=== PATIENT | male | born 1955 | race Caucasian/White ===

== ENCOUNTER → 2016-06-28 | Outpatient (CLI) | payer OTHER ==
[~2016-06-28] MED LIST: ASPI81TA28 PO; ATOR-22 PO; CHEMO TREATMENT IV; DABI150C PO; DIGO0.122 PO; FURO-85 PO; LCTX PO; LEVO1TAB35 PO; METF-384 PO; METO1TAB71 PO; SULF800T23 PO; TAMS0.4C38 PO; VRPSR180 PO
[2016-06-28 09:38] LABS: HEMATOCRIT 41.4 % (42-52); MEAN CELL VOLUME 92.4 fL (80-100); MEAN CORPUSCULAR HEMOGLOBIN 31.3 pg (25-34); MEAN CORPUSCULAR HGB CONC 33.8 g/dl (32-36); MEAN PLATELET VOLUME 10.4 fL (7.4-10.4); PLATELET COUNT 222 K/uL (130-400); RED BLOOD COUNT 4.48 M/uL (4.7-6.1); WHITE BLOOD COUNT 7.97 K/uL (4.8-10.8)
[2016-06-28 10:17] LABS: ESTIMATED AVERAGE GLUCOSE 134 mg/dl; HA1C FLAG Normal (Normal)
[2016-06-28 13:02] LABS: ALT/SGPT 28 U/L (12-78); AST/SGOT 15 U/L (15-37); BLOOD UREA NITROGEN 11 mg/dl (7-18); BUN/CREATININE RATIO 15.1 (10-20); CALCIUM 9.3 mg/dl (8.5-10.1); CARBON DIOXIDE 30 mmol/L (21-32); CHLORIDE 103 mmol/L (98-107); CREATININE 0.74 mg/dl (0.60-1.40); GLUCOSE 121 mg/dl (70-99); POTASSIUM 4.2 mmol/L (3.5-5.1); SODIUM 144 mmol/L (136-145)
[2016-06-28 13:11] LABS: ALB/GLOB RATIO 1.1 (0.9-2); ALKALINE PHOSPHATASE 67 U/L (45-117); CHOLESTEROL 121 mg/dl (0-200); CHOLESTEROL/HDL RATIO 2.2; HDL CHOLESTEROL 54 mg/dl; LDL CHOLESTEROL CALCULATED 51 mg/dl; TRIGLYCERIDES 81 mg/dl (0-150); VERY LOW DENSITY LIPOPROT CALC 16 mg/dl
== END | disposition home or self-care (01) ==
LOC: C.LAB1850 07:38
PROVIDERS: ATTEND Internal Medicine Cardiovascular Disease
DX: C61 Malignant neoplasm of prostate (principal); I48.91 Unspecified atrial fibrillation; I42.9 Cardiomyopathy, unspecified; E78.5 Hyperlipidemia, unspecified; I25.10 Atherosclerotic heart disease of native coronary artery without angina pectoris; I10 Essential (primary) hypertension; E11.9 Type 2 diabetes mellitus without complications

== ENCOUNTER → 2017-01-22 | Outpatient (CLI) | payer OTHER ==
[2017-01-22 10:54] LABS: HEMATOCRIT 42.4 % (42-52); MEAN CELL VOLUME 96.6 fL (80-100); MEAN CORPUSCULAR HEMOGLOBIN 32.8 pg (25-34); MEAN PLATELET VOLUME 10.6 fL (7.4-10.4); PLATELET COUNT 201 K/uL (130-400); RED BLOOD COUNT 4.39 M/uL (4.7-6.1); WHITE BLOOD COUNT 7.75 K/uL (4.8-10.8)
[2017-01-22 11:02] LABS: ALT/SGPT 29 U/L (12-78); AST/SGOT 16 U/L (15-37); BLOOD UREA NITROGEN 11 mg/dl (7-18); BUN/CREATININE RATIO 14.1 (10-20); CALCIUM 9.1 mg/dl (8.5-10.1); CARBON DIOXIDE 32 mmol/L (21-32); CHLORIDE 103 mmol/L (98-107); CREATININE 0.75 mg/dl (0.60-1.40); GLUCOSE 152 mg/dl (70-99); POTASSIUM 3.6 mmol/L (3.5-5.1); SODIUM 141 mmol/L (136-145)
== END | disposition home or self-care (01) ==
LOC: C.LABBC 07:38
PROVIDERS: ATTEND Internal Medicine Cardiovascular Disease
DX: I48.91 Unspecified atrial fibrillation (principal); I42.9 Cardiomyopathy, unspecified; E78.5 Hyperlipidemia, unspecified; I25.10 Atherosclerotic heart disease of native coronary artery without angina pectoris; I10 Essential (primary) hypertension

== ENCOUNTER → 2017-04-20 | Outpatient (CLI) | payer OTHER ==
[~2017-04-20] MED LIST changes: +METO-649 PO; -METO1TAB71 PO; +OPTIRAY 320 IV PRN
--- NOTE | 2017-04-20 13:14 | DIAGNOSTIC IMAGING REPORT ---
ABDOMEN AND PELVIS CT WITH IV AND ORAL CONTRAST CT DOSE: HISTORY: Prostate cancer. Follow-up. TECHNIQUE: Multiaxial CT images of the abdomen and pelvis were performed following the use of intravenous and oral contrast. A dose lowering technique was utilized adhering to the principles of ALARA. COMPARISON STUDY: Abdomen and pelvis CT 01/13/2016. FINDINGS: The lung bases remain clear. No significant change in the osteoblastic lesion within the left inferior pubic ramus. No new osteoblastic lesions identified. No hepatic or splenic masses. The adrenal glands and pancreas are unremarkable. Normal gallbladder. No retroperitoneal lymphadenopathy. No pelvic lymphadenopathy. Mildly enlarged and heterogeneous prostate, unchanged. No bowel wall thickening or obstruction. Normal appendix. Mild bilateral hydroureteronephrosis, left greater than right. There is moderate bladder wall thickening and moderate bladder distention. This has developed in the interval but appears similar to the 2015 examination. IMPRESSION: 1. Moderate bladder wall thickening and moderate bladder distention. There is associated mild bilateral hydroureteronephrosis. Findings suggest bladder outlet obstruction. This is new from the prior study but is similar to the 2015 examination. 2. The prostate gland remains heterogeneous and mildly enlarged. 3. No change in the osteoblastic lesion within the left inferior pubic ramus. Electronically signed by: Robin Friedman M.D. 04/20/2017 1:12 PM Dictated Date/Time: 04/20/2017 1:02 PM
--- NOTE | 2017-04-20 13:18 | DIAGNOSTIC IMAGING REPORT ---
CHEST CT WITH CONTRAST CT DOSE: 645.68 mGy.cm HISTORY: Prostate cancer. Follow-up. TECHNIQUE: Multiaxial CT images of the chest were performed following the intravenous administration of contrast. A dose lowering technique was utilized adhering to the principles of ALARA. COMPARISON: Chest CT 01/13/2016. FINDINGS: Moderate emphysema. Small bilateral fat-containing [place] hernias. The lungs are essentially clear. No suspicious pulmonary nodules. The central airways are patent. No pleural effusions. No pneumothorax. No change in the osteoblastic lesion within the left scapula. No new lesions identified. No mediastinal or hilar lymphadenopathy. No evidence for an aortic dissection. Mild atherosclerotic plaque within the aorta. The main pulmonary arteries are patent. No mediastinal or hilar lymphadenopathy. IMPRESSION: 1. No change in the osteoblastic lesion within the left scapula. 2. Emphysema. Electronically signed by: Robin Friedman M.D. 04/20/2017 1:17 PM Dictated Date/Time: 04/20/2017 1:12 PM
--- NOTE | 2017-04-20 14:39 | DIAGNOSTIC IMAGING REPORT ---
NUCLEAR MEDICINE WHOLE-BODY BONE SCAN CLINICAL HISTORY: PROSTATE CA COMPARISON STUDY: 01/13/2016, CT scan dated 04/20/2017 FINDINGS: The patient was injected with 25.8 mCi of technetium 99m MDP. Three-hour delayed whole body images were acquired. Despite voiding prior to the procedure, the patient's bladder is distended. This obscures a portion of the pelvis. There is a focus of increased activity within the left wrist consistent with degenerative/arthritic change. There is a focus of increased activity within the left upper arm which is felt to be secondary to the radioisotope injection. There is a focus of increased activity within the left inferior pubic ramus. This corresponds to the blastic lesion visualized the CT scan performed the same day. A metastatic deposit is deemed a likely. There are no additional foci suspicious for skeletal metastasis. IMPRESSION: 1. Focus of increased activity at the level of the left inferior pubic ramus. This corresponds to a blastic lesion on CT scanning, and is therefore felt to represent a skeletal metastasis 2. Distended urinary bladder, suggesting bladder outlet obstruction. Electronically signed by: Fletcher Aguillon M.D. 04/20/2017 2:38 PM Dictated Date/Time: 04/20/2017 2:32 PM
== END | disposition home or self-care (01) ==
LOC: C.CTS 10:37
PROVIDERS: ATTEND Internal Medicine Hematology & Oncology
DX: C61 Malignant neoplasm of prostate (principal)

== ENCOUNTER → 2017-07-22 | Outpatient (CLI) | payer OTHER ==
[~2017-07-22] MED LIST changes: -METO-649 PO; +METO200T32 PO; -OPTIRAY 320 IV PRN
[2017-07-22 09:32] LABS: HEMATOCRIT 39.6 % (42-52); HEMOGLOBIN 13.7 g/dL (14.0-18.0); MEAN CELL VOLUME 93.4 fL (80-100); MEAN CORPUSCULAR HEMOGLOBIN 32.3 pg (25-34); MEAN CORPUSCULAR HGB CONC 34.6 g/dl (32-36); MEAN PLATELET VOLUME 10.3 fL (7.4-10.4); PLATELET COUNT 179 K/uL (130-400); RED CELL DISTRIBUTION WIDTH CV 13.2 % (11.5-14.5); RED CELL DISTRIBUTION WIDTH SD 45.1 fL (36.4-46.3); WHITE BLOOD COUNT 7.61 K/uL (4.8-10.8)
[2017-07-22 09:49] LABS: ALT/SGPT 29 U/L (12-78); AST/SGOT 20 U/L (15-37); BLOOD UREA NITROGEN 11 mg/dl (7-18); CALCIUM 9.3 mg/dl (8.5-10.1); CARBON DIOXIDE 32 mmol/L (21-32); CREATININE 0.74 mg/dl (0.60-1.40); GLUCOSE 117 mg/dl (70-99); POTASSIUM 3.4 mmol/L (3.5-5.1); SODIUM 141 mmol/L (136-145)
[2017-07-22 09:52] LABS: HEMOGLOBIN A1C 6.4 % (4.5-5.6)
[2017-07-22 09:53] LABS: CHOLESTEROL 119 mg/dl (0-200); LDL CHOLESTEROL CALCULATED 50 mg/dl
== END | disposition home or self-care (01) ==
LOC: C.LAB1850 07:58
PROVIDERS: ATTEND Internal Medicine Cardiovascular Disease
DX: I48.91 Unspecified atrial fibrillation (principal); I42.9 Cardiomyopathy, unspecified; I25.10 Atherosclerotic heart disease of native coronary artery without angina pectoris; E78.5 Hyperlipidemia, unspecified; I10 Essential (primary) hypertension

== ENCOUNTER 2017-10-20 06:32 | Day surgery (SDC) | payer OTHER ==
[2017-10-11 08:25] VITALS: BMI 25.0
--- NOTE | 2017-10-11 08:58 | PAT Medication Instructions ---
Service Date October 11, 2017. Current Home Medication List Apixaban (Eliquis), 5 MG PO BID Aspirin (Aspirin Ec), 81 MG PO QAM Atorvastatin (Lipitor), 20 MG PO QAM Coenzyme Q10 (Ubidecarenone) (Co Q10), 200 MG PO QAM Digoxin (Digitek), 1 TAB PO QAM Furosemide (Lasix), 20 MG PO QAM Metformin Hcl (Glucophage), 1,000 MG PO BIDM Metoprolol Succinate (Toprolxl (Toprol-Xl), 100 MG PO QAM Tamsulosin Hcl (Flomax), 0.8 MG PO HS Verapamil HCl (Verapamil HCl ER), 180 MG PO QAM Medication Instructions For Your Scheduled Surgery -Follow your hand mica plate layer's instructions for: Apixaban (Eliquis), 5 MG PO BID -Check with surgeon for instructions--if instructed to stop it, check with hand mica plate layer: Aspirin (Aspirin Ec), 81 MG PO QAM - Hold the following medications starting tomorrow: Coenzyme Q10 (Ubidecarenone) (Co Q10), 200 MG PO QAM - Hold the following medications the morning of surgery: Furosemide (Lasix), 20 MG PO QAM Metformin Hcl (Glucophage), 1,000 MG PO BIDM - Take the following medications the morning of surgery with a sip of water: Atorvastatin (Lipitor), 20 MG PO QAM Digoxin (Digitek), 1 TAB PO QAM Metoprolol Succinate (Toprolxl (Toprol-Xl), 100 MG PO QAM Verapamil HCl (Verapamil HCl ER), 180 MG PO QAM - Take the following medications as scheduled the night before surgery: Metformin Hcl (Glucophage), 1,000 MG PO BIDM Tamsulosin Hcl (Flomax), 0.8 MG PO HS If you have any questions please call us at [phone] or [phone] or [phone]
[2017-10-11 10:36] LABS: BASO % 0.3 %; BASO ABS # 0.03 K/uL (0-0.2); EOS % 1.6 %; EOS ABS # 0.14 K/uL (0-0.5); HEMATOCRIT 30.8 % (42-52); HEMOGLOBIN 10.6 g/dL (14.0-18.0); IG# 0.02 K/uL (0.00-0.02); LYMPH % 22.1 %; LYMPH ABS # 1.95 K/uL (1.2-3.4); MEAN CELL VOLUME 90.3 fL (80-100); MEAN CORPUSCULAR HEMOGLOBIN 31.1 pg (25-34); MEAN CORPUSCULAR HGB CONC 34.4 g/dl (32-36); MEAN PLATELET VOLUME 10.4 fL (7.4-10.4); MONO % 7.9 %; NEUT % 67.9 %; NEUT ABS # 5.99 K/uL (1.4-6.5); PLATELET COUNT 202 K/uL (130-400); RED CELL DISTRIBUTION WIDTH CV 13.1 % (11.5-14.5); WHITE BLOOD COUNT 8.83 K/uL (4.8-10.8)
[2017-10-11 13:16] LABS: CALCIUM 8.9 mg/dl (8.5-10.1); CREATININE 1.45 mg/dl (0.60-1.40); POTASSIUM 3.2 mmol/L (3.5-5.1)
[~2017-10-20] VITALS: Ht 175.3 cm; Wt 77.0 kg
[~2017-10-20 06:32] MED LIST changes: +APIX1TAB3 PO; -CHEMO TREATMENT IV; +CIPROFLOXACIN / D5W 400 MG IV SCH; +COEN1CAP28 PO; -DABI150C PO; -DIGO0.122 PO; +DIGO30TA PO; +LACTATED RINGER'S 1000ML 1,000 ML IV SCH; -LCTX PO; -LEVO1TAB35 PO; -SULF800T23 PO
[2017-10-20 06:59] VITALS: BP 170/93; PULSE 75; TEMP 36.5; O2SAT 95; Ht 175.3 cm; Wt 77.0 kg
[2017-10-20] MEDS ORDERED: PROMETHAZINE HCL INJ 12.5 MG in SODIUM CHLORIDE 0.9% 50ML 50 ML IV PRN (07:30)
[2017-10-20] MEDS ORDERED: PHENYLEPHRINE 100MCG/ML 5ML SYR IV PRN (07:30)
[2017-10-20] MEDS ORDERED: HYDROmorphone INJ 0.5 MG/0.5 ML SYR IV PRN (07:30)
[2017-10-20] MEDS ORDERED: EpHEDrine SULFATE INJ 50 MG/ML AMP IV PRN (07:30)
[2017-10-20] MEDS ORDERED: ATROPINE SULFATE 0.1 MG/ML 5ML SYR IV PRN (07:30)
[2017-10-20] MEDS ORDERED: ONDANSETRON INJ 2 MG/ML 2 ML VIAL IV PRN (07:30)
[2017-10-20] MEDS ORDERED: MIDAZOLAM HCL 1 MG/ML 2ML VIAL ONE (07:32)
[2017-10-20] MEDS ORDERED: FENTANYL CITRATE INJ 50 MCG/1 ML 2 ML VIAL ONE (07:32)
--- NOTE | 2017-10-20 08:18 | History & Physical Bridge Note ---
H&P Re-Evaluation Bridge Note: I have examined the patient, reviewed the History & Physical and in the interval since the performance of the History & Physical I have noted the following changes of clinical significance: No changes noted
[2017-10-20] MEDS ORDERED: CIPR-255 PO (08:32)
[2017-10-20] MEDS ORDERED: PHEN-775 PO (08:32)
[2017-10-20] MEDS ORDERED: OXYC-57 PO (08:32)
--- NOTE | 2017-10-20 08:48 | Discharge Instructions ---
Discharge Instructions Date of Service October 20, 2017. Admission Reason for Admission: Urinary Obstruction Discharge Discharge Diagnosis / Problem: ROPER, CAP s/p TURP Discharge Goals Goal(s): Improve function, Therapeutic intervention Activity Recommendations Activity Limitations: as noted below Lifting Limitations: no more than 25 pounds, gradually increase as tolerated Exercise/Sports Limitations: rest today, gradually increase as tolerated May Resume Sexual Activity: after follow-up appointment Shower/Bathe: tomorrow Driving or Machine Use: resume 1 day after discharge . Instructions / Follow-Up Instructions / Follow-Up Follow-up as scheduled in office for catheter removal and postoperative follow- up Current Hospital Diet Patient's current hospital diet: Discharge Diet Recommended Diet: Regular Diet (good fluid intake) Procedures Procedures Performed: Transurethra resection of prostate, urethral dilation Pending Studies Studies pending at discharge: yes List of pending studies: Pathology Medical Emergencies . Who to Call and When: Medical Emergencies: If at any time you feel your situation is an emergency, please call 911 immediately. . Non-Emergent Contact Non-Emergency issues call your: Urologist Call Non-Emergent contact if: you have a fever, temperature is above 101, your pain is not controlled, your pain is worsening, your pain is unusual for you, your pain is concerning you, you have any medication questions . . "Provider Documentation" section prepared by Connor Da Silva. . [place] Drug Monitoring Program Search Results: patient reviewed within database, no issues identified
[2017-10-20] MEDS ORDERED: PROPOFOL IV EMULSION 10 MG/ML 20 ML VIAL ONE (08:51)
[2017-10-20] MEDS ORDERED: DEXAMETHASONE SOD INJ 4 MG/ML VIAL ONE (08:51)
[2017-10-20] MEDS ORDERED: LIDOCAINE HCL 2% 2 ML VIAL (20MG/ML) ONE (08:51)
[2017-10-20] MEDS ORDERED: ONDANSETRON INJ 2 MG/ML 2 ML VIAL ONE (08:51)
[2017-10-20] MEDS ORDERED: BELLADONNA/OPIUM SUPP 60 MG SUPP PR ONE (08:51)
--- NOTE | 2017-10-20 09:22 | [facility] Operative Report ---
Operative Report Operative Date October 20, 2017. Pre-Operative Diagnosis Neoplasm of Prostate, Bladder Outlet Obstruction Post-Operative Diagnosis Neoplasm of Prostate, Bladder Outlet Obstruction, fossa navicularis stenosis Procedure(s) Performed Transurethral resection of prostate, urethral dilation Surgeon Dr. Joey Da Silva [employer] Consultant Surgeon(s) none Estimated Blood Loss 5 ml Findings Channel TURP performed with excellent hemostasis, dilated bladder with no intravesical lesions. Specimens A. Prostate Chips Drains 24 Guyanese Dumont with 10 cc of sterile water in the balloon Anesthesia Type General Complication(s) none Disposition no Recovery Room / PACU Indications 62-year-old male with a history of metastatic prostate cancer for channel TURP for improvement upon his bothersome urinary symptoms. Please see H&P for further details. Intravenous ciprofloxacin provided for antibiotic coverage and SCDs used for DVT prophylaxis. Description of Procedure Patient was properly identified and brought to the operative suite after identification for proper consent of the chart. General anesthesia with laryngeal mask was initiated and patient was prepped and draped in the standard fashion for this procedure. Timeout procedure was followed. Attempts at passing a 26 Guyanese resectoscope into the bladder met with resistance at the level of the fossa navicularis. This was dilated up to a 30 Guyanese caliber using male sounds with the ability to pass the scope easily after this. An obstructive prostate and bladder neck were appreciated as noted within the office on cystoscopy. Using a bipolar loop this was resected in a channel fashion until open. Avoidance of excess resection of prostate tissue was taken to avoid the risk of future incontinence. No injury to the intravesical structures was noted. Bladder had been surveyed at the beginning of the case and was noted to be somewhat patulous with grade 2-3 trabeculation. Ureteral orifices were appreciated in the normal anatomic location without significant abnormalities. No intravesical tumors, papillary lesions, mucosal changes or stones were noted. After resection was complete prostate chips were irrigated free and sent for pathologic analysis. Bipolar button was used to smooth out rough tissue within the prostatic fossa and obtain excellent hemostasis. Bladder was partially distended and resectoscope was removed. 24 Guyanese Dumont catheter was placed without difficulties with return of clear irrigant. 10 cc of sterile water were placed within the balloon which was placed to gravity drainage and a belladonna and opium suppository was provided for additional postoperative analgesia. Anesthesia was reversed and patient was transferred to the recovery room in stable condition. Follow-up instructions: Patient will be provided with a prescription for ciprofloxacin, Percocet and Pyridium for postoperative antibiotic coverage and analgesia. Outpatient trial of void is in place and confirmed. Outpatient office visit as noted. Patient is instructed to contact our service should he note any fevers, chills, nausea, vomiting or other difficulties in the postoperative period. I attest to the content of the Intraoperative Record and any orders documented therein. Any exceptions are noted below.
[2017-10-20] MEDS ORDERED: PHENAZOPYRIDINE HCL 200 MG TAB PO PRN (09:30)
[2017-10-20] MEDS ORDERED: OXYCODONE/ACETAMINOPHEN 5-325 TAB PO PRN ×2 (09:30)
[2017-10-20] MEDS: FENTANYL CITRATE INJ 50 MCG/1 ML 2 ML VIAL IV PRN ×4 (09:32→09:49)
--- NOTE | 2017-10-20 10:08 | Anesthesiology Progress Note ---
Anesthesia Post Op Note Date & Time October 20, 2017 at 10:08 Vital Signs Pain Intensity: 2 Vital Signs Past 12 Hours Date Time Temp Pulse Resp B/P (MAP) Pulse Ox O2 Delivery O2 Flow Rate FiO2 10/20/17 10:05 36.0 46 14 129/75 93 Room Air 10/20/17 09:55 51 17 129/75 93 Room Air 10/20/17 09:45 48 13 133/69 100 Room Air 10/20/17 09:35 55 17 130/84 100 Oxymask 10 10/20/17 09:26 36.1 57 15 146/81 100 Oxymask 10 10/20/17 06:59 36.5 75 18 170/93 (118) 95 Room Air Notes Mental Status: alert / awake / arousable, participated in evaluation Pt Amnestic to Procedure: Yes Nausea / Vomiting: adequately controlled Pain: adequately controlled Airway Patency, RR, SpO2: stable & adequate BP & HR: stable & adequate Hydration State: stable & adequate Anesthetic Complications: no major complications apparent
[2017-10-20 10:20] VITALS: BP 137/70; PULSE 50; TEMP 36.4; O2SAT 94
[2017-10-20 10:50] VITALS: BP 163/57; PULSE 49; O2SAT 93
[2017-10-20 11:20] VITALS: BP 114/67; PULSE 63; TEMP 36.6; O2SAT 92
== END 2017-10-20 11:35 | disposition home or self-care (01) ==
LOC: C.ACU 06:32
PROVIDERS: ATTEND Urology
DX: C61 Malignant neoplasm of prostate (principal); N32.0 Bladder-neck obstruction; R33.9 Retention of urine, unspecified; J44.9 Chronic obstructive pulmonary disease, unspecified; E11.9 Type 2 diabetes mellitus without complications; I48.91 Unspecified atrial fibrillation; I25.10 Atherosclerotic heart disease of native coronary artery without angina pectoris; E78.5 Hyperlipidemia, unspecified; I10 Essential (primary) hypertension; Z82.49 Family history of ischemic heart disease and other diseases of the circulatory system; Z83.3 Family history of diabetes mellitus; Z87.891 Personal history of nicotine dependence; Z79.899 Other long term (current) drug therapy; Z79.01 Long term (current) use of anticoagulants; Z79.82 Long term (current) use of aspirin; Z79.84 Long term (current) use of oral hypoglycemic drugs

== ENCOUNTER → 2017-12-17 | Outpatient (CLI) | payer BC ==
[~2017-12-17] MED LIST changes: +CIPR-255 PO; -CIPROFLOXACIN / D5W 400 MG IV SCH; -LACTATED RINGER'S 1000ML 1,000 ML IV SCH; +OXYC-57 PO
[2017-12-17 10:20] LABS: BASO % 0.3 %; BASO ABS # 0.02 K/uL (0-0.2); EOS ABS # 0.21 K/uL (0-0.5); HEMATOCRIT 38.4 % (42-52); HEMOGLOBIN 12.8 g/dL (14.0-18.0); IG# 0.02 K/uL (0.00-0.02); LYMPH ABS # 2.21 K/uL (1.2-3.4); MEAN CELL VOLUME 93.4 fL (80-100); MEAN CORPUSCULAR HEMOGLOBIN 31.1 pg (25-34); MEAN CORPUSCULAR HGB CONC 33.3 g/dl (32-36); MEAN PLATELET VOLUME 10.2 fL (7.4-10.4); MONO % 6.4 %; MONO ABS # 0.44 K/uL (0.11-0.59); PLATELET COUNT 203 K/uL (130-400); RED CELL DISTRIBUTION WIDTH CV 14.3 % (11.5-14.5); RED CELL DISTRIBUTION WIDTH SD 48.8 fL (36.4-46.3)
[2017-12-17 10:52] LABS: ALBUMIN 3.6 gm/dl (3.4-5.0); ALKALINE PHOSPHATASE 66 U/L (45-117); ALT/SGPT 21 U/L (12-78); AST/SGOT 14 U/L (15-37); BLOOD UREA NITROGEN 16 mg/dl (7-18); CARBON DIOXIDE 31 mmol/L (21-32); CREATININE 0.75 mg/dl (0.60-1.40); GLUCOSE 104 mg/dl (70-99); POTASSIUM 3.7 mmol/L (3.5-5.1); SODIUM 142 mmol/L (136-145)
== END | disposition home or self-care (01) ==
LOC: C.LAB1850 07:29
PROVIDERS: ATTEND Internal Medicine Cardiovascular Disease
DX: C61 Malignant neoplasm of prostate (principal); I48.91 Unspecified atrial fibrillation; I42.9 Cardiomyopathy, unspecified; I25.10 Atherosclerotic heart disease of native coronary artery without angina pectoris; I10 Essential (primary) hypertension; R60.0 Localized edema

== ENCOUNTER 2020-03-31 19:03 | Observation (INO) ==
[2020-03-31 19:30] LABS: Basophils # (auto) 0.01 K/uL (0-0.2); Basophils % (auto) 0.1 %; Eosinophils # (auto) 0.14 K/uL (0-0.5); Eosinophils % (auto) 1.4 %; Hematocrit (blood only) 38.5 % (42-52); Hemoglobin 12.7 g/dL (14.0-18.0); Immature Granulocytes # (auto) 0.04 K/uL (0.00-0.02); Immature Granulocytes % (auto) 0.4 %; Lymphocytes # (auto) 1.96 K/uL (1.2-3.4); Lymphocytes % (auto) 19.5 %; Mean Corpuscular Hemoglobin 30.9 pg (25-34); Mean Corpuscular Volume 93.7 fL (80-100); Mean Platelet Volume 9.5 fL (7.4-10.4); Monocytes # (auto) 0.94 K/uL (0.11-0.59); Monocytes % (auto) 9.3 %; Neutrophils # (auto) 6.98 K/uL (1.4-6.5); Neutrophils % (auto) 69.3 %; Platelet Count 356 K/uL (130-400); RDW Coefficient of Variation 14.6 % (11.5-14.5); RDW Standard Deviation 49.9 fL (36.4-46.3); Red Blood Count 4.11 M/uL (4.7-6.1); White Blood Count 10.07 K/uL (4.8-10.8)
--- NOTE | 2020-03-31 19:37 | Emergency Department Note ---
History of Present Illness General Chief complaint: Cardiac Assessment Stated complaint: CHEST PAIN, LEFT ARM PAIN Time Seen by Provider: 03/31/20 19:14 Source: patient, family (), RN notes reviewed and old records reviewed Mode of arrival: ambulatory Limitations: no limitations History of Present Illness Provider complaint: chest pain Onset (ago): hour(s) 1 Location: chest Radiation: abdomen Severity: mild Pain Consistency: + constant Maximum Pain Intensity: 4 Current Pain Intensity: 4 Quality: + burning Relieved By: + none Exacerbated By: + none Associated symptoms: no cough, no diaphoresis, no fever/chills, no headaches, no loss of appetite, no nausea/vomiting and no shortness of breath Treatments prior to arrival: none This 64-year-old male with a history of congestive heart failure as well as atrial fibrillation who presents the emergency department complaining of chest pain that started after the patient was eating dinner tonight. The patient denies any history of stents. He has not taken anything for the pain. He reports nothing seems to make the pain better or worse. He reports no pain with a deep breath. He reports he has never had chest pain like this before and that it radiates down his left arm. He is refusing anything for the pain here in the emergency department. He does have a history of prostate cancer however is no longer receiving chemotherapy or radiation Home Medications Home Medications Medication Instructions Recorded Confirmed Type leuprolide (3 month) 22.5 mg (3 22.5 mg IM Q3MO ea 02/06/19 03/31/20 History month) intramuscular syringe kit blood sugar diagnostic #10 ea 02/14/19 07/10/19 History blood-glucose meter #1 ea 02/14/19 07/10/19 History aspirin 81 mg tablet,delayed 81 mg PO QAM tab 05/02/19 03/31/20 History release apixaban 5 mg tablet 5 mg PO BID #60 tab 10/02/19 03/31/20 Rx verapamil 180 mg 24 hr 180 mg PO QAM #90 cap 11/29/19 03/31/20 Rx capsule,extended release metformin 1,000 mg tablet 1,000 mg PO BID #180 tab 01/25/20 03/31/20 Rx atorvastatin 20 mg PO QAM 02/14/20 03/31/20 History furosemide [Lasix] See Rx Instructions .ROUTE .COMPLEX 02/14/20 03/31/20 History metoprolol succinate 200 mg PO QAM 02/14/20 03/31/20 History digoxin 125 mcg (0.125 mg) tablet 125 mcg PO Q OTHER DAY #45 tab 02/27/20 03/31/20 Rx Allergies Allergy/AdvReac Type Severity Reaction Status Date / Time carvedilol Allergy Mild RASH Verified 03/31/20 21:11 dronedarone Allergy Mild SEVERE Verified 03/31/20 21:11 CONSTIPATION Past Med/Surg History Medical History (Updated 03/31/20 @ 22:11 by Will Vanessa MD) Anticoagulant long-term use eliquis bid Atrial fibrillation, permanent on eliquis--follows with Dr. Mcfarlane CAD (coronary artery disease) CHF (congestive heart failure) Diabetes type 2 Dyslipidemia Edema History of chemotherapy 2014 - Taxotere + Lupron Hypertension Leukopenia Nonischemic cardiomyopathy Prostate cancer metastatic to bone Diagnosed 04/18/2015 Thrombus of left atrial appendage Surgical History History of cardioversion x2--unsuccessful History of colonoscopy with polypectomy---2017 History of hernia repair 1987 History of prostate biopsy History of tooth extraction all teeth S/P TURP (status post transurethral resection of prostate) 10/20/17 Family History Sister Breast cancer Mother Diabetes Congestive heart failure Hypertension Father Congestive heart failure Brother Prostate cancer Other No family history of adverse response to anesthesia Social History Smoking Status: Never smoker Second Hand Exposure: Yes (1 can every couple days); Do You Dip or Chew Tobacco: Yes (1 can every couple of days); Hx Alcohol Use: No Hx Substance Use: No Preferred Language: Japanese Communication Ability: Effective Roller Print Tender Required: No Beliefs That Will Affect Care: None marital status: Current Living Situation: Spouse current occupational status: employed Other Information That Helps Us Care for You: No Feels Safe at Home: Yes Safety Concerns: Feels Safe At This Time Dental Care, Regularly: No Physical Activity Frequency: Does not Exercise Seatbelt Use: always Assistive Devices: Denture - Upper and Denture - Lower Review of Systems A total of 10 systems reviewed and were otherwise negative Physical Exam Vital Signs Vital Signs - 24 hr 03/31/20 19:05 03/31/20 19:21 03/31/20 19:22 Temperature 36.3 C L Temperature Source Oral Pulse Rate 102 H 109 H 102 H Pulse Rate from SpO2 Sensor 98 H Respiratory Rate 18 19 20 Respiratory Effort / Characteristics Non-Labored Spontaneous Respiratory Depth Normal Respiratory Pattern Regular Blood Pressure 141/77 H 147/96 H Blood Pressure Mean 98 101 Blood Pressure Position Sitting Pulse Oximetry 96 97 Oxygen Delivery Method Room Air Room Air Room Air Sepsis Recent Fever Within 48 Hours No Sepsis New/Unexplained Change in Mental Status No Sepsis Action Taken by Nursing No Action Required 03/31/20 19:30 03/31/20 19:40 03/31/20 19:50 Temperature Temperature Source Pulse Rate 100 H 87 90 Pulse Rate from SpO2 Sensor 94 H 87 Respiratory Rate 21 17 19 Respiratory Effort / Characteristics Respiratory Depth Respiratory Pattern Blood Pressure Blood Pressure Mean Blood Pressure Position Pulse Oximetry 96 96 Oxygen Delivery Method Room Air Room Air Room Air Sepsis Recent Fever Within 48 Hours Sepsis New/Unexplained Change in Mental Status Sepsis Action Taken by Nursing 03/31/20 20:00 03/31/20 20:01 03/31/20 20:10 Temperature Temperature Source Pulse Rate 97 H 96 H 98 H Pulse Rate from SpO2 Sensor 94 H 99 H 95 H Respiratory Rate 20 16 18 Respiratory Effort / Characteristics Respiratory Depth Respiratory Pattern Blood Pressure 135/68 Blood Pressure Mean 80 Blood Pressure Position Pulse Oximetry 97 96 96 Oxygen Delivery Method Room Air Room Air Room Air Sepsis Recent Fever Within 48 Hours Sepsis New/Unexplained Change in Mental Status Sepsis Action Taken by Nursing 03/31/20 20:12 03/31/20 21:00 03/31/20 21:30 Temperature Temperature Source Pulse Rate 96 H 92 H Pulse Rate from SpO2 Sensor 88 94 H Respiratory Rate 19 21 Respiratory Effort / Characteristics Respiratory Depth Respiratory Pattern Blood Pressure 134/77 151/92 H Blood Pressure Mean 82 95 Blood Pressure Position Pulse Oximetry 96 96 Oxygen Delivery Method Room Air Sepsis Recent Fever Within 48 Hours Sepsis New/Unexplained Change in Mental Status Sepsis Action Taken by Nursing 03/31/20 22:00 03/31/20 22:30 Temperature Temperature Source Pulse Rate 105 H 106 H Pulse Rate from SpO2 Sensor 117 H 104 H Respiratory Rate 24 17 Respiratory Effort / Characteristics Respiratory Depth Respiratory Pattern Blood Pressure 134/98 133/90 Blood Pressure Mean 104 116 Blood Pressure Position Pulse Oximetry 92 96 Oxygen Delivery Method Sepsis Recent Fever Within 48 Hours Sepsis New/Unexplained Change in Mental Status Sepsis Action Taken by Nursing VITAL SIGNS - Vital signs and nursing notes were reviewed. GENERAL - 64-year-old male appearing stated age who is in no acute distress. Communicates well with provider and answers questions appropriately. SKIN - Without rashes. HEAD - NC/AT. EYES - PERRL with EOMI bilaterally. Sclera anicteric. Palpebral conjunctiva pink and moist with no injection noted. EARS - No deformities of external structures noted on gross examination bilaterally. No pain elicited with palpation of the tragus bilaterally. External auditory canals without discharge or otorrhea. Tympanic membranes pearly da silva without retraction or bulging. No fluid or purulent material visualized behind the TM. Handle of malleus, umbo, cone of light, pars tensa/flaccid all easily visualized. NOSE - Midline and without cyanosis. No epistaxis or purulent drainage noted. Septum midline without deviation or septal hematoma noted. MOUTH/OROPHARYNX - Without perioral cyanosis. Buccal mucosa pink and moist and without leukoplakia. Tongue midline with equal elevation of palate bilaterally. No tonsillar hypertrophy, erythema, or exudates noted. dentition noted. NECK - Neck with FROM. Supple to palpation. lymphadenopathy noted. No nuchal rigidity. LUNGS - Chest wall symmetric without accessory muscle use, intercostals retractions, or central cyanosis. Normal vesicular breath sounds CTA B/L. No wheezes, rales, or rhonchi appreciated. CARDIAC - RRR with S1/S2. No murmur, rubs, or gallops appreciated. ABDOMEN - Abdominal contour without pulsations or visible masses. BS normoactive all four quadrants. No tenderness, palpable masses, hepatosplenomegaly, or ascites noted. EXTREMITIES - No clubbing or peripheral cyanosis. No pretibial edema present. +3/5 radial, posterior tibial, and dorsalis pedis pulses palpated throughout. +5/5 strength noted in UE/LE bilaterally. NEUROLOGIC - Cranial nerves II through XII grossly intact. Sensory intact to light touch throughout. Patellar reflexes +2/4. PSYCH - A&Ox3 and cooperates fully with examiner. Pt is very pleasant and interacts well with examiner. Medical Decision Making Differential Diagnosis Cardiac ischemia, aortic dissection, pulmonary embolism, pneumothorax, pneumonia, pericarditis, myocarditis, esophageal rupture, GERD, cholecystitis, pancreatitis, musculoskeletal, as well as other pathologies. Medical Records Attestation: I reviewed the patient's medical records. Home Medications Current Medication List: was personally reviewed by me Laboratory Data Attestation: I reviewed the patient's lab results. Result diagrams: 03/31/20 19:22 03/31/20 20:48 Lab Results 03/31/20 03/31/20 03/31/20 Range/Units 19:22 19:22 19:22 WBC 10.07 (4.8-10.8) K/uL RBC 4.11 L (4.7-6.1) M/uL Hgb 12.7 L (14.0-18.0) g/dL POC Hgb (14.0-18.0) g/dl Hct 38.5 L (42-52) % POC Hct (42-52) % MCV 93.7 (80-100) fL MCH 30.9 (25-34) pg MCHC 33.0 (32-36) g/dL RDW Std Deviation 49.9 H (36.4-46.3) fL RDW Coeff of Wilbert 14.6 H (11.5-14.5) % Plt Count 356 (130-400) K/uL MPV 9.5 (7.4-10.4) fL Immature Gran % (Auto) 0.4 % Neut % (Auto) 69.3 % Lymph % (Auto) 19.5 % Keith % (Auto) 9.3 % Eos % (Auto) 1.4 % Baso % (Auto) 0.1 % Neut # (Auto) 6.98 H (1.4-6.5) K/uL Lymph # (Auto) 1.96 (1.2-3.4) K/uL Keith # (Auto) 0.94 H (0.11-0.59) K/uL Eos # (Auto) 0.14 (0-0.5) K/uL Baso # (Auto) 0.01 (0-0.2) K/uL Immature Gran # (Auto) 0.04 H (0.00-0.02) K/uL PT Cancelled INR Cancelled APTT Cancelled PTT Ratio Cancelled POC Sodium (135-144) mmol/L Sodium 133 L (136-145) mmol/L POC Potassium (3.3-5.0) mmol/L Potassium (3.5-5.1) mmol/L POC Chloride (101-112) mmol/L Chloride 97 L (98-107) mmol/L Carbon Dioxide 27 (21-32) mmol/L POC Total CO2 (24-31) mmol/L Anion Gap 9.0 (3-11) POC Anion Gap (16-25) mmol/L POC BUN (7-18) mg/dl BUN 19 H (7-18) mg/dl Creatinine 0.91 (0.6-1.4) mg/dl POC Creatinine (0.6-1.3) mg/dl Est Cr Clr Drug Dosing 65.1 ml/min Est GFR ( Amer) 103.6 Est GFR (Non-Af Amer) 89.4 BUN/Creatinine Ratio 21.1 H (10-20) Glucose 131 H (70-99) mg/dl POC Glucose (other) (70-99) mg/dl Calcium 8.9 (8.5-10.1) mg/dl POC Ioniz Calcium Landen (1.12-1.32) mmol/l Total Bilirubin 0.5 (0.2-1) mg/dl AST (15-37) U/L ALT 46 (12-78) U/L Alkaline Phosphatase 214 H (45-117) U/L Total Creatine Kinase (39-308) U/L CK-MB (CK-2) 1.6 (0.5-3.6) ng/ml CK/CKMB % Calc Not Reportable Troponin I < 0.015 (0-0.045) ng/ml NT-Pro-B Natriuret Pep 626 (0-900) pg/ml Total Protein 8.1 (6.4-8.2) gm/dl Albumin 3.2 L (3.4-5.0) gm/dl Globulin 4.9 H (2.5-4.0) gm/dl Albumin/Globulin Ratio 0.6 L (0.9-2) Lipase 160 (73-393) U/L Digoxin (0.8-2.0) ng/ml COVID-19 Eval Order COVID-19 PCR (Negative) 03/31/20 03/31/20 03/31/20 Range/Units 19:37 19:41 20:02 WBC (4.8-10.8) K/uL RBC (4.7-6.1) M/uL Hgb (14.0-18.0) g/dL POC Hgb 12.6 L (14.0-18.0) g/dl Hct (42-52) % POC Hct 37 L (42-52) % MCV (80-100) fL MCH (25-34) pg MCHC (32-36) g/dL RDW Std Deviation (36.4-46.3) fL RDW Coeff of Wilbert (11.5-14.5) % Plt Count (130-400) K/uL MPV (7.4-10.4) fL Immature Gran % (Auto) % Neut % (Auto) % Lymph % (Auto) % Keith % (Auto) % Eos % (Auto) % Baso % (Auto) % Neut # (Auto) (1.4-6.5) K/uL Lymph # (Auto) (1.2-3.4) K/uL Keith # (Auto) (0.11-0.59) K/uL Eos # (Auto) (0-0.5) K/uL Baso # (Auto) (0-0.2) K/uL Immature Gran # (Auto) (0.00-0.02) K/uL PT INR APTT PTT Ratio POC Sodium 135 (135-144) mmol/L Sodium (136-145) mmol/L POC Potassium 4.0 (3.3-5.0) mmol/L Potassium (3.5-5.1) mmol/L POC Chloride 93 L (101-112) mmol/L Chloride (98-107) mmol/L Carbon Dioxide (21-32) mmol/L POC Total CO2 27 (24-31) mmol/L Anion Gap (3-11) POC Anion Gap 20.0 (16-25) mmol/L POC BUN 18 (7-18) mg/dl BUN (7-18) mg/dl Creatinine (0.6-1.4) mg/dl POC Creatinine 0.7 (0.6-1.3) mg/dl Est Cr Clr Drug Dosing ml/min Est GFR ( Amer) Est GFR (Non-Af Amer) BUN/Creatinine Ratio (10-20) Glucose (70-99) mg/dl POC Glucose (other) 135 H (70-99) mg/dl Calcium (8.5-10.1) mg/dl POC Ioniz Calcium Landen 1.11 L (1.12-1.32) mmol/l Total Bilirubin (0.2-1) mg/dl AST (15-37) U/L ALT (12-78) U/L Alkaline Phosphatase (45-117) U/L Total Creatine Kinase (39-308) U/L CK-MB (CK-2) (0.5-3.6) ng/ml CK/CKMB % Calc Troponin I (0-0.045) ng/ml NT-Pro-B Natriuret Pep (0-900) pg/ml Total Protein (6.4-8.2) gm/dl Albumin (3.4-5.0) gm/dl Globulin (2.5-4.0) gm/dl Albumin/Globulin Ratio (0.9-2) Lipase (73-393) U/L Digoxin 0.4 L (0.8-2.0) ng/ml COVID-19 Eval Order Covid19 Done at [facility] COVID-19 PCR (Negative) 03/31/20 03/31/20 03/31/20 Range/Units 20:02 20:48 20:48 WBC (4.8-10.8) K/uL RBC (4.7-6.1) M/uL Hgb (14.0-18.0) g/dL POC Hgb (14.0-18.0) g/dl Hct (42-52) % POC Hct (42-52) % MCV (80-100) fL MCH (25-34) pg MCHC (32-36) g/dL RDW Std Deviation (36.4-46.3) fL RDW Coeff of Wilbert (11.5-14.5) % Plt Count (130-400) K/uL MPV (7.4-10.4) fL Immature Gran % (Auto) % Neut % (Auto) % Lymph % (Auto) % Keith % (Auto) % Eos % (Auto) % Baso % (Auto) % Neut # (Auto) (1.4-6.5) K/uL Lymph # (Auto) (1.2-3.4) K/uL Keith # (Auto) (0.11-0.59) K/uL Eos # (Auto) (0-0.5) K/uL Baso # (Auto) (0-0.2) K/uL Immature Gran # (Auto) (0.00-0.02) K/uL PT 17.7 H INR 1.7 H APTT 32.4 H PTT Ratio 1.2 POC Sodium (135-144) mmol/L Sodium (136-145) mmol/L POC Potassium (3.3-5.0) mmol/L Potassium (3.5-5.1) mmol/L POC Chloride (101-112) mmol/L Chloride (98-107) mmol/L Carbon Dioxide (21-32) mmol/L POC Total CO2 (24-31) mmol/L Anion Gap (3-11) POC Anion Gap (16-25) mmol/L POC BUN (7-18) mg/dl BUN (7-18) mg/dl Creatinine (0.6-1.4) mg/dl POC Creatinine (0.6-1.3) mg/dl Est Cr Clr Drug Dosing ml/min Est GFR ( Amer) Est GFR (Non-Af Amer) BUN/Creatinine Ratio (10-20) Glucose (70-99) mg/dl POC Glucose (other) (70-99) mg/dl Calcium (8.5-10.1) mg/dl POC Ioniz Calcium Landen (1.12-1.32) mmol/l Total Bilirubin (0.2-1) mg/dl AST (15-37) U/L ALT (12-78) U/L Alkaline Phosphatase (45-117) U/L Total Creatine Kinase (39-308) U/L CK-MB (CK-2) (0.5-3.6) ng/ml CK/CKMB % Calc Troponin I (0-0.045) ng/ml NT-Pro-B Natriuret Pep (0-900) pg/ml Total Protein (6.4-8.2) gm/dl Albumin (3.4-5.0) gm/dl Globulin (2.5-4.0) gm/dl Albumin/Globulin Ratio (0.9-2) Lipase (73-393) U/L Digoxin (0.8-2.0) ng/ml COVID-19 Eval Order COVID-19 PCR NEGATIVE (Negative) Imaging Data Radiologist's Impression: [facility] [place], [place] [phone] CT Scan Report Patient: JEREMY MARIA AAdmit Date: 03/31/20 MR#: [id number]: [id number] Acct ID:[id number]: [facility] Zip[facility] [place] [id number] Age: 64Location: ED Sex: MRoom/Bed: Att Phy:Diagnosis: CHEST PAIN, LEFT ARM PAIN Sarah Phy: Ramiro Meléndez III, MDService Date: 03/31/20 Fam Phy: Ramiro Meléndez III, MDInterpreting Phy: Paddy Sam MD Admit Phy: Ordering Phy: Will Vanessa MD cc: ~ CT ANGIOGRAPHY OF THE CHEST, PULMONARY EMBOLUS PROTOCOL CLINICAL HISTORY: Chest pain. Prostate cancer. COMPARISON STUDY: Chest CT April 20, 2017. Chest radiograph September 04, 2018. TECHNIQUE: Following IV administration of 118 mL of Optiray-320, helical axial images of the chest were obtained utilizing the pulmonary embolus protocol. Maximal intensity projections and sagittal and coronal reformats were viewed on an independent 3D workstation. IV contrast was administered without complication. Automated exposure control was utilized for the study. A dose lowering technique was utilized adhering to the principles of ALARA. CT DOSE: 819.74 mGycm FINDINGS: No pulmonary emboli are identified. There is no thoracic aortic dissection. The size of the heart is normal. There is no pericardial effusion. No pneumothorax or pleural effusion is noted. There is bilateral gynecomastia. No enlarged axillary, mediastinal or hilar lymph nodes are present. There is no consolidation to suggest pneumonia. Severe emphysema is noted. A few small left lower lobe pulmonary nodules measure up to 4 mm. A few of these are new since prior CT of April 20, 2017 and are indeterminate. Note is made of a 2.2 cm sclerotic lesion within the left humeral neck. This is new since prior chest CT. There is also a lesion within T6 vertebral body that measures 1.4 cm. This is new since prior exam. A left scapular lesion is unchanged. Extensive hepatic metastatic disease has significantly progressed since CT of January 17, 2020. IMPRESSION: 1. No pulmonary emboli identified. 2. Marked progression of hepatic metastatic disease since CT of January 17, 2020. This is better depicted on the CT of the abdomen and pelvis which will be reported separately. Several new skeletal lesions suggestive of metastases. 3. Emphysema. ACT 112: Negative or not required by law. Electronically signed by: Paddy Sam M.D. 03/31/2020 8:52 PM Dictated: 03/31/202041 Transcribed: 03/31/202041 [place], [place] [phone] CT Scan Report Patient: JEREMY MARIA AAdmit Date: 03/31/20 MR#: [id number]: [id number] Acct ID:[id number]: [facility] Zip[facility] [place] [address] Age: 64Location: ED Sex: MRoom/Bed: Att Phy:Diagnosis: CHEST PAIN, LEFT ARM PAIN Sarah Phy: Ramiro Meléndez III, MDService Date: 03/31/20 Fam Phy: Ramiro Meléndez III, MDInterpreting Phy: Paddy Sam MD Admit Phy: Ordering Phy: Will Vanessa MD cc: ~ CT OF THE ABDOMEN AND PELVIS WITH CONTRAST CLINICAL HISTORY: Chest and abdominal pain. Prostate cancer. COMPARISON STUDY: CT of the abdomen and pelvis January 17, 2020. TECHNIQUE: Following IV administration of 118 mL of Optiray-320, axial images of the abdomen and pelvis were obtained from the lung bases to the proximal femurs. Images were reviewed in the axial, sagittal, and coronal planes. IV contrast was administered without complication. Automated exposure control was utilized for the study. A dose lowering technique was utilized adhering to the principles of ALARA. FINDINGS: Please note that the chest CT will be reported separately. The size and number of numerous hepatic metastases have significantly increased since CT of January 17, 2020. Index lateral segment lesion now measures 5.2 cm. It previously measured 2.3 cm. No biliary or pancreatic ductal dilatation is noted. The spleen, adrenal glands and kidneys are unremarkable with exception of a right renal cyst. There is no evidence for a bowel obstruction. The appendix is normal. Abdominal and pelvic lymphadenopathy has significantly progressed since prior CT. Index portacaval lymph node on image 146 of 446 measures 3.7 x 1.9 cm. Index left para-aortic lymph node measures 1.8 x 1.5 cm. Index right iliac chain node on image 295 measures 1.9 x 1.4 cm. Bladder wall thickening is noted. Note is made of multiple perirectal nodules that measure up to 1.6 cm. The prostate gland is enlarged. Enhancing nodules project over the base of the bladder. In addition, there is possible extension into the periprosthetic tissues at the level of the right apex of the bladder. These findings have progressed. Left ischial skeletal metastasis is unchanged. There is extensive plaque of the abdominal aorta which is normal in caliber. No pneumatosis, free air or portal venous gas is present. IMPRESSION: 1. Significant progression of extensive hepatic metastatic disease since CT of January 17, 2020. 2. Progression of abdominal and pelvic lymphadenopathy consistent with izabella sp read of disease. 3. Multiple perirectal nodules/pathologic lymph nodes suggestive of metastatic disease. Findings suggestive of local spread of disease with possible invasion into the bladder and right periprostatic soft tissues, as described above. ACT 112: Negative or not required by law. Electronically signed by: Paddy Sam M.D. 03/31/2020 9:13 PM Dictated: 03/31/202054 Transcribed: 03/31/202099 ECG Data Attestation: I personally reviewed and interpreted this ECG as follows: Indication: + chest pain Rate (beats per minute): 90 Rhythm: + atrial fibrillation ECG Intervals/blocks: + Normal QT-c (437) ECG ST segments: no ST depression and no ST elevation ECG Findings: + PVCs Comparison ECG Date: from (10/11/2017) Change: the following changes noted (T wave inversions no longer evident) MDM Narrative Patient was seen and evaluated as above in room A11. Review was performed of nursing notes and vital signs. I did review pertinent previous visits and patient history. After obtaining a thorough history and physical examination the above work up was performed. This is a 64-year-old male who presents the emergency department complaining of chest and abdominal pain. Due to the patient's past medical history he was sent for CAT scan of the chest abdomen pelvis. He does not have an elevation in his white blood cell count however his hemoglobin is anemic at 12.7 BUN is slightly elevated at 19. His troponin remains THROAT: No sore throat, difficulty swallowing, or hoarseness.. Due to the diffuse metastasis of the patient's [facility] I did discuss the case with the hospitalist service who did agree to admit the patient. An order was placed for continuous cardiac monitoring. The monitor shows a rate of 100 with Afib rhythm. The patient was evaluated during the global COVID-19 pandemic, and that diagnosis was suspected/considered upon their initial presentation. Their evaluation, treatment and testing was consistent with current guidelines for patients who present with complaints or symptoms that may be related to COVID- 19. Impression & Plan Chest pain, Abdominal pain, Atrial fibrillation, permanent, Anemia, Prostate cancer Discharge Plan Visit Data Chief Complaint: Cardiac Assessment Stated Complaint: CHEST PAIN, LEFT ARM PAIN ED Provider: Will Vanessa Discharge Problem: Chest pain, Abdominal pain, Atrial fibrillation, permanent, Anemia, Prostate cancer Forms Stand Alone Forms: [facility] Prescriptions Prescriptions: No Action Lupron Depot (3 month) 22.5 mg syringe kit 22.5 mg IM Q3MO RF: 0 Eliquis 5 mg tablet 5 mg PO BID Qty: 60 RF: 11 verapamil 180 mg capsule,ext rel. pellets 24 hr 180 mg PO QAM Qty: 90 RF: 1 metformin 1,000 mg tablet 1,000 mg PO BID Qty: 180 RF: 3 digoxin [Digitek] 125 mcg (0.125 mg) tablet 125 mcg PO Q OTHER DAY Qty: 45 RF: 3 (DME) blood-glucose meter [OneTouch Ultra2 Meter] kit See Dose Instructions .ROUTE .MEDSUPPLY Qty: 1 RF: 0 (DME) OneTouch Ultra Blue Test Strip strip See Dose Instructions .ROUTE .MEDSUPPLY Qty: 10 RF: 0 aspirin 81 mg tablet,delayed release (DR/EC) 81 mg PO QAM RF: 0 atorvastatin 20 mg tablet 20 mg PO QAM RF: 0 metoprolol succinate 200 mg tablet extended release 24 hr 200 mg PO QAM RF: 0 furosemide [Lasix] 20 mg tablet See Rx Instructions .ROUTE .COMPLEX RF: 0 Discharge Problem: Chest pain Qualifiers: Chest pain type: unspecified Qualified Code(s): R07.9 - Chest pain, unspecified Abdominal pain Qualifiers: Abdominal location: unspecified location Qualified Code(s): R10.9 - Unspecified abdominal pain Anemia Qualifiers: Anemia type: unspecified type Qualified Code(s): D64.9 - Anemia, unspecified
[2020-03-31 19:53] LABS: iSTAT Creatinine 0.7 mg/dl (0.6-1.3); iSTAT Hemoglobin 12.6 g/dl (14.0-18.0); iSTAT Ionized Calcium 1.11 mmol/l (1.12-1.32)
[2020-03-31 20:14] LABS: Alanine Aminotransferase 46 U/L (12-78); Albumin Globulin Ratio 0.6 (0.9-2); Albumin Level 3.2 gm/dl (3.4-5.0); Alkaline Phosphatase 214 U/L (45-117); BUN Creatinine Ratio 21.1 (10-20); Bilirubin,Total 0.5 mg/dl (0.2-1); Blood Urea Nitrogen 19 mg/dl (7-18); Calcium 8.9 mg/dl (8.5-10.1); Carbon Dioxide 27 mmol/L (21-32); Chloride 97 mmol/L (98-107); Creatine Kinase MB 1.6 ng/ml (0.5-3.6); Creatinine Clr Calc Pharmacy 65.1 ml/min; Est GFR (African American) 103.6; Est GFR (Non-African American) 89.4; Globulin 4.9 gm/dl (2.5-4.0); Glucose 131 mg/dl (70-99); Lipase 160 U/L (73-393); NT Pro B Type Natriuretic Pept 626 pg/ml (0-900); Sodium 133 mmol/L (136-145); Total Protein 8.1 gm/dl (6.4-8.2); Troponin I < 0.015 ng/ml (0-0.045)
--- NOTE | 2020-03-31 20:53 | CT Scan Report ---
CT ANGIOGRAPHY OF THE CHEST, PULMONARY EMBOLUS PROTOCOL CLINICAL HISTORY: Chest pain. Prostate cancer. COMPARISON STUDY: Chest CT April 20, 2017. Chest radiograph September 04, 2018. TECHNIQUE: Following IV administration of 118 mL of Optiray-320, helical axial images of the chest we re obtained utilizing the pulmonary embolus protocol. Maximal intensity projections and sagittal and coronal reformats were viewed on an independent 3D workstation. IV contrast was administered withou t complication. Automated exposure control was utilized for the study. A dose lowering technique wa s utilized adhering to the principles of ALARA. CT DOSE: 819.74 mGycm FINDINGS: No pulmonary emboli are identified. There is no thoracic aortic dissection. The size of th e heart is normal. There is no pericardial effusion. No pneumothorax or pleural effusion is noted. Th ere is bilateral gynecomastia. No enlarged axillary, mediastinal or hilar lymph nodes are present. Th ere is no consolidation to suggest pneumonia. Severe emphysema is noted. A few small left lower lobe pulmonary nodules measure up to 4 mm. A few of these are new since prior CT of April 20, 2017 and are indeterminate. Note is made of a 2.2 cm sclerotic lesion within the left humeral neck. This is ne w since prior chest CT. There is also a lesion within T6 vertebral body that measures 1.4 cm. This is new since prior exam. A left scapular lesion is unchanged. Extensive hepatic metastatic disease has significantly progressed since CT of January 17, 2020. IMPRESSION: 1. No pulmonary emboli identified. 2. Marked progression of hepatic metastatic disease since CT of January 17, 2020. This is better depic marcus on the CT of the abdomen and pelvis which will be reported separately. Several new skeletal lesio ns suggestive of metastases. 3. Emphysema. ACT 112: Negative or not required by law. Electronically signed by: Paddy Sam M.D. 03/31/2020 8:52 PM
--- NOTE | 2020-03-31 21:14 | CT Scan Report ---
CT OF THE ABDOMEN AND PELVIS WITH CONTRAST CLINICAL HISTORY: Chest and abdominal pain. Prostate cancer. COMPARISON STUDY: CT of the abdomen and pelvis January 17, 2020. TECHNIQUE: Following IV administration of 118 mL of Optiray-320, axial images of the abdomen and pelv is were obtained from the lung bases to the proximal femurs. Images were reviewed in the axial, sagit aleks, and coronal planes. IV contrast was administered without complication. Automated exposure contr ol was utilized for the study. A dose lowering technique was utilized adhering to the principles of ALARA. FINDINGS: Please note that the chest CT will be reported separately. The size and number of numerous hepatic metastases have significantly increased since CT of January 17, 2020. Index lateral segment le deja now measures 5.2 cm. It previously measured 2.3 cm. No biliary or pancreatic ductal dilatation i s noted. The spleen, adrenal glands and kidneys are unremarkable with exception of a right renal cyst . There is no evidence for a bowel obstruction. The appendix is normal. Abdominal and pelvic lymphade nopathy has significantly progressed since prior CT. Index portacaval lymph node on image 146 of 446 measures 3.7 x 1.9 cm. Index left para-aortic lymph node measures 1.8 x 1.5 cm. Index right iliac mark in node on image 295 measures 1.9 x 1.4 cm. Bladder wall thickening is noted. Note is made of multipl e perirectal nodules that measure up to 1.6 cm. The prostate gland is enlarged. Enhancing nodules pro ject over the base of the bladder. In addition, there is possible extension into the periprosthetic t issues at the level of the right apex of the bladder. These findings have progressed. Left ischial sk eletal metastasis is unchanged. There is extensive plaque of the abdominal aorta which is normal in c aliber. No pneumatosis, free air or portal venous gas is present. IMPRESSION: 1. Significant progression of extensive hepatic metastatic disease since CT of January 17, 2020. 2. Progression of abdominal and pelvic lymphadenopathy consistent with izabella spread of disease. 3. Multiple perirectal nodules/pathologic lymph nodes suggestive of metastatic disease. Findings sugg estive of local spread of disease with possible invasion into the bladder and right periprostatic sof t tissues, as described above. ACT 112: Negative or not required by law. Electronically signed by: Paddy Sam M.D. 03/31/2020 9:13 PM
[2020-03-31 21:18] LABS: INR 1.7 (0.9-1.1); Partial Thromboplastin Ratio 1.2; Partial Thromboplastin Time 32.4 Seconds (21.0-31.0); Prothrombin Time 17.7 Seconds (9.0-12.0)
--- NOTE | 2020-03-31 22:37 | History & Physical Report ---
Date of Service March 31, 2020 Assessment & Plan (1) Chest pain: Kvng is a 64-year-old male with a past medical history of prostate cancer with metastasis, CAD, hypertension, A. fib, and nonischemic cardiomyopathy who presented to the emergency department for chest pain and he was found to have worsening of his metastatic disease from prostate cancer. Chest pain, suspect noncardiac Improved at time of assessment Not associated with shortness of breath or dyspnea No ischemic EKG changes, troponin on presentation negative Trend troponin every 6 hours x2 CBC/BMP/coags daily potassium 4.0, magnesium pending. - Admit to telemetry for observation Covid negative CTA without signs of pulmonary emboli Metastatic prostate cancer with bony mets Prostate cancer Leblanc 4+5, metastatic spread Previously followed by [facility] on chemo and radiation therapy (Xgeva, Taxotere, Lupron) At last follow-up 12/2019 bone scan showed uptake in right scapula and left tuberosity but did not require palliative XRT as he was asymptomatic at the time. He was status post 6 cycles of Taxotere along with Lupron and Casodex. Disease progression had been noted previously in July/2019 and a follow-up CT on showed decrease in hepatic metastasis, decrease in right iliac chain lymphadenopathy, but persistent blastic changes. Bone scan otherwise showed no evidence of new activity at that time. CT:a/P on admit: 1. Significant progression of extensive hepatic metastatic disease since CT of January 17, 2020. 2. Progression of abdominal and pelvic lymphadenopathy consistent with izabella spread of disease. 3. Multiple perirectal nodules/pathologic lymph nodes suggestive of metastatic disease. Findings suggestive of local spread of disease with possible invasion into the bladder and right periprostatic soft tissues, as described above. - Cancer care consulted CAD Continue aspirin 81 mg daily Continue atorvastatin 20 mg p.o. every morning Continue metoprolol 200 mg p.o. every morning Hypertension Metoprolol as above Continue verapamil 180 mg every 24 hours A. fib permanent Continue anticoagulation with apixaban Rate controlling medications as above Digoxin 125 mcg every other day DVT prophylaxis: Anticoagulated for A. fib Diet: Diabetic CODE STATUS: Full code, discussed with patient Disposition: Med/surge telemetry while on chest pain (2) Abdominal pain: (3) Anemia: (4) Hypertension: (5) Edema: (6) Nonischemic cardiomyopathy: (7) Atrial fibrillation, permanent: History of Present Illness Chief Complaint: Chest Pain Primary Care Provider: Ramiro Meléndez MD Mr. Eric is a 64yo M who presents with a PMHx of prostate cancer Developed ches tpain in L arm. "Chest just hurt big time" and breathing was "so- so. I could breath" but wanted to get checked out. Pain started today after supper. Was located in the mid-center of the chest, 5-6/10, sharp in quality. Comes and goes since. No exacerbating or remitting facftors. Pain in L arm has improved. Has had no problems with reflux/GERD in the past. Was out of breath but not sweaty. no cest stephens prior to this. No episdoes of pain with walking or exertion leading up to this. Has had some increased back pain over the weekend, otherwise denies other sx. Heating pad helped pain a litlebit, pain in his back was in the R low hip/uper buttock area. No other recent illness. No fever, chills, sweats, abdominal pain, constipation. had some loose BMs since Tuesday. no blood, no melena. Tobacco: Snuff, 4-5 pouches per day for many years. Quit 2010, stated again 2014. EtoH: None Recreational: Denies, no marijuana use Social: Lives with his . Noone sick in the home. Allergies Allergy/AdvReac Type Severity Reaction Status Date / Time carvedilol Allergy Mild RASH Verified 03/31/20 21:11 dronedarone Allergy Mild SEVERE Verified 03/31/20 21:11 CONSTIPATION Home Medications Home Medications Medication Instructions Recorded Confirmed Type leuprolide (3 month) 22.5 mg (3 22.5 mg IM Q3MO ea 02/06/19 03/31/20 History month) intramuscular syringe kit blood sugar diagnostic #10 ea 02/14/19 07/10/19 History blood-glucose meter #1 ea 02/14/19 07/10/19 History aspirin 81 mg tablet,delayed 81 mg PO QAM tab 05/02/19 03/31/20 History release apixaban 5 mg tablet 5 mg PO BID #60 tab 10/02/19 03/31/20 Rx verapamil 180 mg 24 hr 180 mg PO QAM #90 cap 11/29/19 03/31/20 Rx capsule,extended release metformin 1,000 mg tablet 1,000 mg PO BID #180 tab 01/25/20 03/31/20 Rx atorvastatin 20 mg PO QAM 02/14/20 03/31/20 History furosemide [Lasix] See Rx Instructions .ROUTE .COMPLEX 02/14/20 03/31/20 History metoprolol succinate 200 mg PO QAM 02/14/20 03/31/20 History digoxin 125 mcg (0.125 mg) tablet 125 mcg PO Q OTHER DAY #45 tab 02/27/20 03/31/20 Rx Past Med/Surg History Medical History (Updated 03/31/20 @ 22:11 by Will Vanessa MD) Anticoagulant long-term use eliquis bid Atrial fibrillation, permanent on eliquis--follows with Dr. Mcfarlane CAD (coronary artery disease) CHF (congestive heart failure) Diabetes type 2 Dyslipidemia Edema History of chemotherapy 2014 - Taxotere + Lupron Hypertension Leukopenia Nonischemic cardiomyopathy Prostate cancer metastatic to bone Diagnosed 04/18/2015 Thrombus of left atrial appendage Surgical History History of cardioversion x2--unsuccessful History of colonoscopy with polypectomy---2017 History of hernia repair 1986 History of prostate biopsy History of tooth extraction all teeth S/P TURP (status post transurethral resection of prostate) 10/20/17 Family History Sister Breast cancer Mother Diabetes Congestive heart failure Hypertension Father Congestive heart failure Brother Prostate cancer Other No family history of adverse response to anesthesia Social History Smoking Status: Never smoker Second Hand Exposure: Yes (1 can every couple days); Do You Dip or Chew Tobacco: Yes (1 can every couple of days); Hx Alcohol Use: No Hx Substance Use: No Preferred Language: Luxembourgish Communication Ability: Effective 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 NAD. Cooperative. Appears thin,. HEENT: Atraumatic, normocephalic. PERLAA. EoM intact, visual acuity and heating grossly intact. Pulm: CTAB A&P. -wheezes, -rales, -rhonchi. Symmetrical chest rise. No increase work of breathing. No respiratory distress. Cardiac: RRR, -mrg. Radial pulses intact and symmetrical. Abdominal: Nontender, nondistended, soft. BS present. Ext: Moving all extremities equally. Pt pulses intact and symmetrical. Sensation in fingers and toes intact bilaterally and symmetrical. Results & Data Results & Data ([facility]) Vital Signs (Past 12 Hours) Vital Signs Temp Pulse Resp BP Pulse Ox 03/31/20 22:00 105 H 24 134/98 92 03/31/20 21:30 92 H 21 151/92 H 96 03/31/20 21:00 96 H 19 134/77 96 03/31/20 20:10 98 H 18 96 03/31/20 20:01 96 H 16 135/68 96 03/31/20 20:00 97 H 20 97 03/31/20 19:50 90 19 96 03/31/20 19:40 87 17 03/31/20 19:30 100 H 21 96 03/31/20 19:22 102 H 20 147/96 H 97 03/31/20 19:21 109 H 19 03/31/20 19:05 36.3 C L 102 H 18 141/77 H 96 Laboratory Results Lab Results 03/31/20 03/31/20 03/31/20 Range/Units 19:22 19:22 19:22 WBC 10.07 (4.8-10.8) K/uL RBC 4.11 L (4.7-6.1) M/uL Hgb 12.7 L (14.0-18.0) g/dL POC Hgb (14.0-18.0) g/dl Hct 38.5 L (42-52) % POC Hct (42-52) % MCV 93.7 (80-100) fL MCH 30.9 (25-34) pg MCHC 33.0 (32-36) g/dL RDW Std Deviation 49.9 H (36.4-46.3) fL RDW Coeff of Wilbert 14.6 H (11.5-14.5) % Plt Count 356 (130-400) K/uL MPV 9.5 (7.4-10.4) fL Immature Gran % (Auto) 0.4 % Neut % (Auto) 69.3 % Lymph % (Auto) 19.5 % Freeborn % (Auto) 9.3 % Eos % (Auto) 1.4 % Baso % (Auto) 0.1 % Neut # (Auto) 6.98 H (1.4-6.5) K/uL Lymph # (Auto) 1.96 (1.2-3.4) K/uL Freeborn # (Auto) 0.94 H (0.11-0.59) K/uL Eos # (Auto) 0.14 (0-0.5) K/uL Baso # (Auto) 0.01 (0-0.2) K/uL Immature Gran # (Auto) 0.04 H (0.00-0.02) K/uL PT Cancelled INR Cancelled APTT Cancelled PTT Ratio Cancelled POC Sodium (135-144) mmol/L Sodium 133 L (136-145) mmol/L POC Potassium (3.3-5.0) mmol/L Potassium (3.5-5.1) mmol/L POC Chloride (101-112) mmol/L Chloride 97 L (98-107) mmol/L Carbon Dioxide 27 (21-32) mmol/L POC Total CO2 (24-31) mmol/L Anion Gap 9.0 (3-11) POC Anion Gap (16-25) mmol/L POC BUN (7-18) mg/dl BUN 19 H (7-18) mg/dl Creatinine 0.91 (0.6-1.4) mg/dl POC Creatinine (0.6-1.3) mg/dl Est Cr Clr Drug Dosing 65.1 ml/min Est GFR ( Amer) 103.6 Est GFR (Non-Af Amer) 89.4 BUN/Creatinine Ratio 21.1 H (10-20) Glucose 131 H (70-99) mg/dl POC Glucose (other) (70-99) mg/dl Calcium 8.9 (8.5-10.1) mg/dl POC Ioniz Calcium Landen (1.12-1.32) mmol/l Total Bilirubin 0.5 (0.2-1) mg/dl AST (15-37) U/L ALT 46 (12-78) U/L Alkaline Phosphatase 214 H (45-117) U/L Total Creatine Kinase (39-308) U/L CK-MB (CK-2) 1.6 (0.5-3.6) ng/ml CK/CKMB % Calc Not Reportable Troponin I < 0.015 (0-0.045) ng/ml NT-Pro-B Natriuret Pep 626 (0-900) pg/ml Total Protein 8.1 (6.4-8.2) gm/dl Albumin 3.2 L (3.4-5.0) gm/dl Globulin 4.9 H (2.5-4.0) gm/dl Albumin/Globulin Ratio 0.6 L (0.9-2) Lipase 160 (73-393) U/L Digoxin (0.8-2.0) ng/ml COVID-19 Eval Order COVID-19 PCR (Negative) 03/31/20 03/31/20 03/31/20 Range/Units 19:37 19:41 20:02 WBC (4.8-10.8) K/uL RBC (4.7-6.1) M/uL Hgb (14.0-18.0) g/dL POC Hgb 12.6 L (14.0-18.0) g/dl Hct (42-52) % POC Hct 37 L (42-52) % MCV (80-100) fL MCH (25-34) pg MCHC (32-36) g/dL RDW Std Deviation (36.4-46.3) fL RDW Coeff of Wilbert (11.5-14.5) % Plt Count (130-400) K/uL MPV (7.4-10.4) fL Immature Gran % (Auto) % Neut % (Auto) % Lymph % (Auto) % Freeborn % (Auto) % Eos % (Auto) % Baso % (Auto) % Neut # (Auto) (1.4-6.5) K/uL Lymph # (Auto) (1.2-3.4) K/uL Freeborn # (Auto) (0.11-0.59) K/uL Eos # (Auto) (0-0.5) K/uL Baso # (Auto) (0-0.2) K/uL Immature Gran # (Auto) (0.00-0.02) K/uL PT INR APTT PTT Ratio POC Sodium 135 (135-144) mmol/L Sodium (136-145) mmol/L POC Potassium 4.0 (3.3-5.0) mmol/L Potassium (3.5-5.1) mmol/L POC Chloride 93 L (101-112) mmol/L Chloride (98-107) mmol/L Carbon Dioxide (21-32) mmol/L POC Total CO2 27 (24-31) mmol/L Anion Gap (3-11) POC Anion Gap 20.0 (16-25) mmol/L POC BUN 18 (7-18) mg/dl BUN (7-18) mg/dl Creatinine (0.6-1.4) mg/dl POC Creatinine 0.7 (0.6-1.3) mg/dl Est Cr Clr Drug Dosing ml/min Est GFR ( Amer) Est GFR (Non-Af Amer) BUN/Creatinine Ratio (10-20) Glucose (70-99) mg/dl POC Glucose (other) 135 H (70-99) mg/dl Calcium (8.5-10.1) mg/dl POC Ioniz Calcium Landen 1.11 L (1.12-1.32) mmol/l Total Bilirubin (0.2-1) mg/dl AST (15-37) U/L ALT (12-78) U/L Alkaline Phosphatase (45-117) U/L Total Creatine Kinase (39-308) U/L CK-MB (CK-2) (0.5-3.6) ng/ml CK/CKMB % Calc Troponin I (0-0.045) ng/ml NT-Pro-B Natriuret Pep (0-900) pg/ml Total Protein (6.4-8.2) gm/dl Albumin (3.4-5.0) gm/dl Globulin (2.5-4.0) gm/dl Albumin/Globulin Ratio (0.9-2) Lipase (73-393) U/L Digoxin 0.4 L (0.8-2.0) ng/ml COVID-19 Eval Order Covid19 Done at [facility] COVID-19 PCR (Negative) 03/31/20 03/31/20 03/31/20 Range/Units 20:02 20:48 20:48 WBC (4.8-10.8) K/uL RBC (4.7-6.1) M/uL Hgb (14.0-18.0) g/dL POC Hgb (14.0-18.0) g/dl Hct (42-52) % POC Hct (42-52) % MCV (80-100) fL MCH (25-34) pg MCHC (32-36) g/dL RDW Std Deviation (36.4-46.3) fL RDW Coeff of Wilbert (11.5-14.5) % Plt Count (130-400) K/uL MPV (7.4-10.4) fL Immature Gran % (Auto) % Neut % (Auto) % Lymph % (Auto) % Freeborn % (Auto) % Eos % (Auto) % Baso % (Auto) % Neut # (Auto) (1.4-6.5) K/uL Lymph # (Auto) (1.2-3.4) K/uL Freeborn # (Auto) (0.11-0.59) K/uL Eos # (Auto) (0-0.5) K/uL Baso # (Auto) (0-0.2) K/uL Immature Gran # (Auto) (0.00-0.02) K/uL PT 17.7 H INR 1.7 H APTT 32.4 H PTT Ratio 1.2 POC Sodium (135-144) mmol/L Sodium (136-145) mmol/L POC Potassium (3.3-5.0) mmol/L Potassium (3.5-5.1) mmol/L POC Chloride (101-112) mmol/L Chloride (98-107) mmol/L Carbon Dioxide (21-32) mmol/L POC Total CO2 (24-31) mmol/L Anion Gap (3-11) POC Anion Gap (16-25) mmol/L POC BUN (7-18) mg/dl BUN (7-18) mg/dl Creatinine (0.6-1.4) mg/dl POC Creatinine (0.6-1.3) mg/dl Est Cr Clr Drug Dosing ml/min Est GFR ( Amer) Est GFR (Non-Af Amer) BUN/Creatinine Ratio (10-20) Glucose (70-99) mg/dl POC Glucose (other) (70-99) mg/dl Calcium (8.5-10.1) mg/dl POC Ioniz Calcium Landen (1.12-1.32) mmol/l Total Bilirubin (0.2-1) mg/dl AST (15-37) U/L ALT (12-78) U/L Alkaline Phosphatase (45-117) U/L Total Creatine Kinase (39-308) U/L CK-MB (CK-2) (0.5-3.6) ng/ml CK/CKMB % Calc Troponin I (0-0.045) ng/ml NT-Pro-B Natriuret Pep (0-900) pg/ml Total Protein (6.4-8.2) gm/dl Albumin (3.4-5.0) gm/dl Globulin (2.5-4.0) gm/dl Albumin/Globulin Ratio (0.9-2) Lipase (73-393) U/L Digoxin (0.8-2.0) ng/ml COVID-19 Eval Order COVID-19 PCR NEGATIVE (Negative) 04/01/20 04/01/20 04/01/20 Range/Units 01:35 01:35 01:35 WBC 8.22 (4.8-10.8) K/uL RBC 3.85 L (4.7-6.1) M/uL Hgb 11.8 L (14.0-18.0) g/dL POC Hgb (14.0-18.0) g/dl Hct 35.8 L (42-52) % POC Hct (42-52) % MCV 93.0 (80-100) fL MCH 30.6 (25-34) pg MCHC 33.0 (32-36) g/dL RDW Std Deviation 48.8 H (36.4-46.3) fL RDW Coeff of Wilbert 14.5 (11.5-14.5) % Plt Count 324 (130-400) K/uL MPV 9.3 (7.4-10.4) fL Immature Gran % (Auto) 0.4 % Neut % (Auto) 62.6 % Lymph % (Auto) 23.5 % Freeborn % (Auto) 11.4 % Eos % (Auto) 1.9 % Baso % (Auto) 0.2 % Neut # (Auto) 5.14 (1.4-6.5) K/uL Lymph # (Auto) 1.93 (1.2-3.4) K/uL Freeborn # (Auto) 0.94 H (0.11-0.59) K/uL Eos # (Auto) 0.16 (0-0.5) K/uL Baso # (Auto) 0.02 (0-0.2) K/uL Immature Gran # (Auto) 0.03 H (0.00-0.02) K/uL PT INR APTT PTT Ratio POC Sodium (135-144) mmol/L Sodium 137 (136-145) mmol/L POC Potassium (3.3-5.0) mmol/L Potassium 3.6 (3.5-5.1) mmol/L POC Chloride (101-112) mmol/L Chloride 99 (98-107) mmol/L Carbon Dioxide 31 (21-32) mmol/L POC Total CO2 (24-31) mmol/L Anion Gap 7.0 (3-11) POC Anion Gap (16-25) mmol/L POC BUN (7-18) mg/dl BUN 15 (7-18) mg/dl Creatinine 0.74 (0.6-1.4) mg/dl POC Creatinine (0.6-1.3) mg/dl Est Cr Clr Drug Dosing 80.1 ml/min Est GFR ( Amer) 113.8 Est GFR (Non-Af Amer) 98.2 BUN/Creatinine Ratio 19.7 (10-20) Glucose 100 H (70-99) mg/dl POC Glucose (other) (70-99) mg/dl Calcium 8.6 (8.5-10.1) mg/dl POC Ioniz Calcium Landen (1.12-1.32) mmol/l Total Bilirubin (0.2-1) mg/dl AST (15-37) U/L ALT (12-78) U/L Alkaline Phosphatase (45-117) U/L Total Creatine Kinase (39-308) U/L CK-MB (CK-2) (0.5-3.6) ng/ml CK/CKMB % Calc Troponin I < 0.015 (0-0.045) ng/ml NT-Pro-B Natriuret Pep (0-900) pg/ml Total Protein (6.4-8.2) gm/dl Albumin (3.4-5.0) gm/dl Globulin (2.5-4.0) gm/dl Albumin/Globulin Ratio (0.9-2) Lipase (73-393) U/L Digoxin (0.8-2.0) ng/ml COVID-19 Eval Order COVID-19 PCR (Negative) Diagnostic Findings CT ANGIOGRAPHY OF THE CHEST, PULMONARY EMBOLUS PROTOCOL CLINICAL HISTORY: Chest pain. Prostate cancer. COMPARISON STUDY: Chest CT April 20, 2017. Chest radiograph September 04, 2018. TECHNIQUE: Following IV administration of 118 mL of Optiray-320, helical axial images of the chest were obtained utilizing the pulmonary embolus protocol. Maximal intensity projections and sagittal and coronal reformats were viewed on an independent 3D workstation. IV contrast was administered without complication. Automated exposure control was utilized for the study. A dose lowering technique was utilized adhering to the principles of ALARA. CT DOSE: 819.74 mGycm FINDINGS: No pulmonary emboli are identified. There is no thoracic aortic dissection. The size of the heart is normal. There is no pericardial effusion. No pneumothorax or pleural effusion is noted. There is bilateral gynecomastia. No enlarged axillary, mediastinal or hilar lymph nodes are present. There is no consolidation to suggest pneumonia. Severe emphysema is noted. A few small left lower lobe pulmonary nodules measure up to 4 mm. A few of these are new since prior CT of April 20, 2017 and are indeterminate. Note is made of a 2.2 cm sclerotic lesion within the left humeral neck. This is new since prior chest CT. There is also a lesion within T6 vertebral body that measures 1.4 cm. This is new since prior exam. A left scapular lesion is unchanged. Extensive hepatic metastatic disease has significantly progressed since CT of January 17, 2020. IMPRESSION: 1. No pulmonary emboli identified. 2. Marked progression of hepatic metastatic disease since CT of January 17, 2020. This is better depicted on the CT of the abdomen and pelvis which will be reported separately. Several new skeletal lesions suggestive of metastases. 3. Emphysema. ACT 112: Negative or not required by law. Electronically signed by: Paddy Sam M.D. 03/31/2020 8:52 PM Dictated: 03/31/202041 Transcribed: 03/31/202041 CT OF THE ABDOMEN AND PELVIS WITH CONTRAST CLINICAL HISTORY: Chest and abdominal pain. Prostate cancer. COMPARISON STUDY: CT of the abdomen and pelvis January 17, 2020. TECHNIQUE: Following IV administration of 118 mL of Optiray-320, axial images of the abdomen and pelvis were obtained from the lung bases to the proximal femurs. Images were reviewed in the axial, sagittal, and coronal planes. IV contrast was administered without complication. Automated exposure control was utilized for the study. A dose lowering technique was utilized adhering to the principles of ALARA. FINDINGS: Please note that the chest CT will be reported separately. The size and number of numerous hepatic metastases have significantly increased since CT of January 17, 2020. Index lateral segment lesion now measures 5.2 cm. It previously measured 2.3 cm. No biliary or pancreatic ductal dilatation is noted. The spleen, adrenal glands and kidneys are unremarkable with exception of a right renal cyst. There is no evidence for a bowel obstruction. The appendix is normal. Abdominal and pelvic lymphadenopathy has significantly progressed since prior CT. Index portacaval lymph node on image 146 of 446 measures 3.7 x 1.9 cm. Index left para-aortic lymph node measures 1.8 x 1.5 cm. Index right iliac chain node on image 295 measures 1.9 x 1.4 cm. Bladder wall thickening is noted. Note is made of multiple perirectal nodules that measure up to 1.6 cm. The prostate gland is enlarged. Enhancing nodules project over the base of the bladder. In addition, there is possible extension into the periprosthetic tissues at the level of the right apex of the bladder. These findings have progressed. Left ischial skeletal metastasis is unchanged. There is extensive plaque of the abdominal aorta which is normal in caliber. No pneumatosis, free air or portal venous gas is present. IMPRESSION: 1. Significant progression of extensive hepatic metastatic disease since CT of January 17, 2020. 2. Progression of abdominal and pelvic lymphadenopathy consistent with izabella spread of disease. 3. Multiple perirectal nodules/pathologic lymph nodes suggestive of metastatic disease. Findings suggestive of local spread of disease with possible invasion into the bladder and right periprostatic soft tissues, as described above. ACT 112: Negative or not required by law. Electronically signed by: Paddy Sam M.D. 03/31/2020 9:13 PM Dictated: 03/31/202054 Transcribed: 03/31/202099 Supervising Physician Co-Signing Physician Notes Patient seen and examined, chart reviewed, case discussed with Dr. Jack and I agree with his assessment and plan as documented above. Briefly, patient is a 64yo male presenting with CP. Workup revealed diffusely metastatic prostate CA. On exam patient is afebrile, HD stable, NAD Skin - no rash HEENT - NC/AT, PERRL, EOMI, Neck supple Heart - +S1/S2, regular, no m/r/g Lungs - CTA Abd - +BS, soft, NT/ND Ext - No edema Labs and images reviewed. CT scans as above Assessment/Plan - 1. CP - cardiac monitoring, trend troponin 2. Prostate CA with diffuse mets - patient currently not on chemo. Oncology consultation appreciated to discuss next steps in management Remainder of plan as above Resident Activity Tracking Resident Involvement: Resident Care Provided Care Provided: Adult Hospital Medicine (1) Anemia Anemia type: unspecified type Qualified Code(s): D64.9 - Anemia, unspecified (2) Abdominal pain Abdominal location: unspecified location Qualified Code(s): R10.9 - Unspecified abdominal pain (3) Chest pain Chest pain type: unspecified Qualified Code(s): R07.9 - Chest pain, unspecified
[2020-04-01] MEDS ORDERED: DEXTROSE 50% 50 ML SYRINGE IV PRN (00:47)
[2020-04-01] MEDS ORDERED: CARBOHYDRATES FOR HYPOGLYCEMIA PO PRN (00:47)
[2020-04-01] MEDS ORDERED: GLUCOSE 10 TABS/TUBE PO PRN (00:47)
[2020-04-01] MEDS ORDERED: ONDANSETRON INJ 2 MG/ML 2 ML VIAL IV PRN (00:47)
[2020-04-01] MEDS ORDERED: GLUCAGON FOR INJ 1 MG VIAL SQ PRN (00:47)
[2020-04-01] MEDS ORDERED: ACETAMINOPHEN 325 MG TAB PO PRN (00:47)
[2020-04-01] MEDS ORDERED: ACETAMINOPHEN 325 MG TAB PO SCH (00:47)
[2020-04-01] MEDS ORDERED: GLUCOSE 40% GEL 15 GM TUBE PO PRN (00:47)
[2020-04-01] MEDS ORDERED: MoRPHine SULFATE 2 MG/ML CARP IV PRN (00:47)
[2020-04-01 01:52] LABS: Basophils # (auto) 0.02 K/uL (0-0.2); Basophils % (auto) 0.2 %; Eosinophils # (auto) 0.16 K/uL (0-0.5); Eosinophils % (auto) 1.9 %; Hematocrit (blood only) 35.8 % (42-52); Hemoglobin 11.8 g/dL (14.0-18.0); Immature Granulocytes # (auto) 0.03 K/uL (0.00-0.02); Immature Granulocytes % (auto) 0.4 %; Lymphocytes # (auto) 1.93 K/uL (1.2-3.4); Lymphocytes % (auto) 23.5 %; Mean Corpuscular Hemoglobin 30.6 pg (25-34); Mean Platelet Volume 9.3 fL (7.4-10.4); Monocytes # (auto) 0.94 K/uL (0.11-0.59); Monocytes % (auto) 11.4 %; Neutrophils # (auto) 5.14 K/uL (1.4-6.5); Neutrophils % (auto) 62.6 %; Platelet Count 324 K/uL (130-400); RDW Coefficient of Variation 14.5 % (11.5-14.5); RDW Standard Deviation 48.8 fL (36.4-46.3); Red Blood Count 3.85 M/uL (4.7-6.1); White Blood Count 8.22 K/uL (4.8-10.8)
[2020-04-01 02:10] LABS: BUN Creatinine Ratio 19.7 (10-20); Calcium 8.6 mg/dl (8.5-10.1); Creatinine Clr Calc Pharmacy 80.1 ml/min; Est GFR (African American) 113.8; Est GFR (Non-African American) 98.2; Potassium 3.6 mmol/L (3.5-5.1)
[2020-04-01] MEDS ORDERED: MoRPHine SULFATE 2 MG/ML CARP IV STA (02:28)
--- NOTE | 2020-04-01 02:45 | Billing Data ---
Date of Service March 31, 2020 Coding Level of Care Code 39823 OBS Care - Level 3
[2020-04-01] MEDS: INSULIN ASPART 100 UNITS/ML 3 ML PEN SC SCH ×2 (08:16→13:32)
--- NOTE | 2020-04-01 08:19 | Hospitalist Progress Note ---
Date of Service April 01, 2020 Assessment & Plan (1) Chest pain: Kvng is a 64-year-old male with a past medical history of prostate cancer with metastasis, CAD, hypertension, A. fib, and nonischemic cardiomyopathy who presented to the emergency department for chest pain and he was found to have worsening of his metastatic disease from prostate cancer. Chest pain, suspect noncardiac Improved at time of assessment Not associated with shortness of breath or dyspnea No ischemic EKG changes, troponin on presentation negative Trend troponin every 6 hours x2 CBC/BMP/coags daily potassium 4.0, magnesium pending. - Admit to telemetry for observation Covid negative CTA without signs of pulmonary emboli Metastatic prostate cancer with bony mets Prostate cancer S[place] 4+5, metastatic spread Previously followed by [facility] on chemo and radiation therapy (Xgeva, Taxotere, Lupron) At last follow-up 12/2019 bone scan showed uptake in right scapula and left tuberosity but did not require palliative XRT as he was asymptomatic at the time. He was status post 6 cycles of Taxotere along with Lupron and Casodex. Disease progression had been noted previously in July/2019 and a follow-up CT on showed decrease in hepatic metastasis, decrease in right iliac chain lymphadenopathy, but persistent blastic changes. Bone scan otherwise showed no evidence of new activity at that time. CT:a/P on admit: 1. Significant progression of extensive hepatic metastatic disease since CT of January 17, 2020. 2. Progression of abdominal and pelvic lymphadenopathy consistent with izabella spread of disease. 3. Multiple perirectal nodules/pathologic lymph nodes suggestive of metastatic disease. Findings suggestive of local spread of disease with possible invasion into the bladder and right periprostatic soft tissues, as described above. - Cancer care consulted CAD Continue aspirin 81 mg daily Continue atorvastatin 20 mg p.o. every morning Continue metoprolol 200 mg p.o. every morning Hypertension Metoprolol as above Continue verapamil 180 mg every 24 hours A. fib permanent Continue anticoagulation with apixaban Rate controlling medications as above Digoxin 125 mcg every other day DVT prophylaxis: Anticoagulated for A. fib Diet: Diabetic CODE STATUS: Full code, discussed with patient Disposition: Med/surge telemetry while on chest pain (2) Abdominal pain: (3) Anemia: (4) Hypertension: (5) Edema: (6) Nonischemic cardiomyopathy: (7) Atrial fibrillation, permanent: Admission and Anticipated Discharge Date Admission Date: March 31, 2020 Results & Data Results & Data ([facility]) Vital Signs (Past 12 Hours) Vital Signs Temp Pulse Pulse Pulse Resp BP BP 04/01/20 07:53 36.5 C 100 H 18 128/80 04/01/20 04:00 36.8 C 87 18 110/70 04/01/20 02:35 90 04/01/20 01:13 36.5 C 89 16 04/01/20 00:28 98 H 20 128/73 03/31/20 23:37 107 H 23 128/73 03/31/20 22:30 106 H 17 133/90 03/31/20 22:00 105 H 24 134/98 03/31/20 21:30 92 H 21 151/92 H 03/31/20 21:00 96 H 19 134/77 BP Pulse Ox 04/01/20 07:53 92 04/01/20 04:00 96 04/01/20 02:35 04/01/20 01:13 150/87 H 95 04/01/20 00:28 97 03/31/20 23:37 96 03/31/20 22:30 96 03/31/20 22:00 92 03/31/20 21:30 96 03/31/20 21:00 96 (1) Anemia Anemia type: unspecified type Qualified Code(s): D64.9 - Anemia, unspecified (2) Abdominal pain Abdominal location: unspecified location Qualified Code(s): R10.9 - Unspecified abdominal pain (3) Chest pain Chest pain type: unspecified Qualified Code(s): R07.9 - Chest pain, unspecified
[2020-04-01] MEDS ORDERED: ATORVASTATIN 20 MG TAB PO SCH (09:00)
[2020-04-01] MEDS ORDERED: FUROSEMIDE 20 MG TAB PO SCH (09:00)
[2020-04-01] MEDS ORDERED: ASPIRIN 81 MG ECTAB PO SCH (09:00)
[2020-04-01] MEDS ORDERED: INSULIN GLARGINE SOLOSTAR 100 UNITS/ML 3 ML PEN SC SCH (09:00)
[2020-04-01] MEDS ORDERED: APIXABAN 5 MG TABLET PO SCH (09:00)
[2020-04-01] MEDS ORDERED: METOPROLOL SUCC 50MG EXT REL TAB PO SCH (09:00)
[2020-04-01] MEDS ORDERED: VERAPAMIL HCL 180 MG TABCR PO SCH (09:00)
[2020-04-01 12:01] VITALS: TEMP 97.9; O2SAT 95
--- NOTE | 2020-04-01 12:46 | Electrocardiogram Report ---
Test Reason : Blood Pressure : / mmHG Vent. Rate : 090 BPM Atrial Rate : 208 BPM P-R Int : 000 ms QRS Dur : 082 ms QT Int : 358 ms P-R-T Axes : 000 062 023 degrees QTc Int : 437 ms Atrial fibrillation Low voltage QRS Nonspecific ST abnormality Abnormal ECG When compared with ECG of 11-OCT-2017 09:13, Vent. rate has increased BY 31 BPM T wave inversion no longer evident in Inferior leads T wave inversion no longer evident in Anterolateral leads QT has lengthened Confirmed by Baldemar Shane ([id number]) on 04/01/2020 12:45:52 PM Referred By: REFERRED SELF Confirmed By:Randy Shane
[2020-04-01 16:05] VITALS: BP 150/87; PULSE 89
--- NOTE | 2020-04-01 17:09 | Discharge Summary ---
Date of Service April 01, 2020 Admission HPI Per Admitting Provider Mr. Eric is a 64yo M who presents with a PMHx of prostate cancer Developed ches tpain in L arm. "Chest just hurt big time" and breathing was "so- so. I could breath" but wanted to get checked out. Pain started today after supper. Was located in the mid-center of the chest, 5-6/10, sharp in quality. Comes and goes since. No exacerbating or remitting facftors. Pain in L arm has improved. Has had no problems with reflux/GERD in the past. Was out of breath but not sweaty. no cest stephens prior to this. No episdoes of pain with walking or exertion leading up to this. Has had some increased back pain over the weekend, otherwise denies other sx. Heating pad helped pain a litlebit, pain in his back was in the R low hip/uper buttock area. No other recent illness. No fever, chills, sweats, abdominal pain, constipation. had some loose BMs since Tuesday. no blood, no melena. Tobacco: Snuff, 4-5 pouches per day for many years. Quit 2010, stated again 2014. EtoH: None Recreational: Denies, no marijuana use Social: Lives with his . Noone sick in the home. Admission Exam Per Admitting Provider General: A&Ox3. NAD. Cooperative. Appears thin,. HEENT: Atraumatic, normocephalic. PERLAA. EoM intact, visual acuity and heating grossly intact. Pulm: CTAB A&P. -wheezes, -rales, -rhonchi. Symmetrical chest rise. No increase work of breathing. No respiratory distress. Cardiac: RRR, -mrg. Radial pulses intact and symmetrical. Abdominal: Nontender, nondistended, soft. BS present. Ext: Moving all extremities equally. Pt pulses intact and symmetrical. Sensation in fingers and toes intact bilaterally and symmetrical. Principal Diagnosis noncardiac chest pain, prostate cancer with metastases Discharge Exam Constitutional: thin, in no apparent distress, sitting comfortably in bed. Eyes: EOMI, pupils equal and reactive bilaterally, no scleral icterus Cardiac: RRR, no murmurs, gallops or rubs. Normal S1, S2. no tenderness with sternal palpation. Pulm: CTA BL, no wheezes, rhonchi, crackles or rubs, moving air well throughout both lungs Abd: soft, nontender, nondistended, normal bowel sounds, no rebound or guarding. tender to palp at L ASIS. Extremities: 2+ peripheral pulses, no edema Neuro: no focal deficits, moving all 4 limbs, A&Ox3 Discharge Data Allergies Allergy/AdvReac Type Severity Reaction Status Date / Time carvedilol Allergy Mild RASH Verified 03/31/20 21:11 dronedarone Allergy Mild SEVERE Verified 03/31/20 21:11 CONSTIPATION Consultations 03/31/20 21:31 ED Decision to Admit Stat Ordered Studies 03/31/20 19:24 CT abd pelvis IV con only Stat CT angio chest PE protocol Stat Hospital Course (1) Chest pain: Kvng is a 64-year-old male with a past medical history of prostate cancer with metastasis, CAD, hypertension, A. fib, and nonischemic cardiomyopathy who presented to the emergency department for chest pain and he was found to have worsening of his metastatic disease from prostate cancer. Cardiac Workup: no ischemic EKG changes, troponins negative x3. CTA negative for PE. Metastatic Prostate Cancer with Bony Mets and worsening spread: bony mets initially seen on CT chest. Consequential CT abd/pelv revealed: 1. Significant progression of extensive hepatic metastatic disease since CT of January 17, 2020. 2. Progression of abdominal and pelvic lymphadenopathy consistent with izabella spread of disease. 3. Multiple perirectal nodules/pathologic lymph nodes suggestive of metastatic disease. Findings suggestive of local spread of disease with possible invasion into the bladder and right periprostatic soft tissues, as described above. Pain controlled with PRN morphine. Patient aware that scans showed worsening lymphadenopathy and disease. Discharged given hemodynamic stability, negative cardiac workup. Discussed case with Dr. Castro who recommended discharge and follow up in [facility] to discuss next steps and options. Afib: digoxin level low at 0.4 on admission. Cardiology sidelined and recommended staying on 125 mcg every other day as he was appropriately rate controlled and asymptomatic. All other medical conditions managed per home regimen. (2) Abdominal pain: (3) Anemia: (4) Hypertension: (5) Edema: (6) Nonischemic cardiomyopathy: (7) Atrial fibrillation, permanent: Total Time Total Time Spent Total Time Spent (In Minutes): see attending attestation Discharge Plan Discharge Items Patient Disposition: Home - Self-Care Reason For Visit: CHEST PAIN Discharge Diagnosis: Metastatic Prostate Cancer Activity: Resume your previous activity Non-emergency contact: Primary Care Provider and Oncologist Call non-emergency contact if: you have any medication questions and your symptoms worsen Follow-up/Referrals: Ramiro Meléndez III, MD [Primary Care Provider] - Diet: Regular Addtl Attending Provider Instructions: You were evaluated in the hospital for chest pain that acutely worsened over the last few days. Your EKG and cardiac enzymes were normal showing that it was not your heart causing the pain. In the ER you had a CT of your abdomen/pelvic and your chest performed which revealed progression of your prostate cancer into the lymph nodes in your pelvis and abdomen, liver as well as bones. There were also some "ropey" fibers noted near your prostate which could be recurrence of the disease. Given that your chest pain was not due to your heart and there was nothing to be acutely done in the hospital, we discharged you home. I personally spoke to Dr. Castro on the phone and updated him on your reports and case. He is okay with seeing you soon in the office to discuss plans of medication, radiation or direction going forward. Please call his office and schedule an appointment with them at their soonest availability. There was also a question regarding your Digoxin level being low while in the hospital. Dr. Shane (who works with Dr. Osorio) recommended that we not change your Digoxin regimen given that your heart rate is still controlled and i s not causing you any problems at this dose. Continue taking your 125 mcg Digoxin every other day. If you have worsening chest pain, trouble breathing, chest pressure, please seek medical attention immediately. Pending Studies at Discharge: No Stand-Alone Forms: My [facility], Smoking Cessation Medications and DC Order Prescriptions: New oxycodone 5 mg tablet 5 mg PO BID PRN (Reason: pain) Qty: 10 RF: 0 Continued Lupron Depot (3 month) 22.5 mg syringe kit 22.5 mg IM Q3MO RF: 0 Eliquis 5 mg tablet 5 mg PO BID Qty: 60 RF: 11 verapamil 180 mg capsule,ext rel. pellets 24 hr 180 mg PO QAM Qty: 90 RF: 1 metformin 1,000 mg tablet 1,000 mg PO BID Qty: 180 RF: 3 digoxin [Digitek] 125 mcg (0.125 mg) tablet 125 mcg PO Q OTHER DAY Qty: 45 RF: 3 (DME) blood-glucose meter [OneTouch Ultra2 Meter] kit See Dose Instructions .ROUTE .MEDSUPPLY Qty: 1 RF: 0 (DME) OneTouch Ultra Blue Test Strip strip See Dose Instructions .ROUTE .MEDSUPPLY Qty: 10 RF: 0 aspirin 81 mg tablet,delayed release (DR/EC) 81 mg PO QAM RF: 0 atorvastatin 20 mg tablet 20 mg PO QAM RF: 0 metoprolol succinate 200 mg tablet extended release 24 hr 200 mg PO QAM RF: 0 furosemide [Lasix] 20 mg tablet See Rx Instructions .ROUTE .COMPLEX RF: 0 Discharge Orders: Discharge Order (Routine); Ordered 04/01/20 Ordered By: Uziel Galindo Admission Data Admit Date/Time: 03/31/20 23:42 Attending Provider: Uziel Galindo Admit Provider: Fidel Jack Primary Care Provider: Ramiro Meléndez III Other Providers: Monica Brunson Smriti Other Interventions: Discharge Summary Assessment (RN) Last Done: 04/01/20 16:04 Supervising Physician Co-Signing Physician Notes Attending attestation Pt seen and examined in concert with Dr. Worthington. In agreement with the documented findings as noted in the resident documentation with any exceptions or additions as noted here. Patient reports overall improvement of positionally reproducible left flank pain which radiates centrally, which is controlled with present pain medication regimen orally. On examination, S1/S2 nl IRR no MCG. CTAB. Abd NT/ND BS+ve. Reproducible TTP of the left flank described as sore and similar to active complaint w/o radiation. Chest pain w/ h/o CAD - last stress echo 02/06/2020 reviewed - troponin neg, no EKG changes. Continue ASA, Lipitor, metoprolol Metastatic prostate cancer with bony metastasis - appreciated worsening on CTs done for chest pain - oncology team at [facility] aware and will follow closely as outpatient to review options for management Atrial fibrillation - continue apixaban and digoxin, as well as metoprolol Else see resident documentation as noted. Resident Activity Tracking Resident Involvement: Resident Care Provided Care Provided: Adult Hospital Medicine
[2020-04-02] MEDS ORDERED: DIGOXIN 0.125 MG TAB PO SCH (16:00)
== END 2020-04-01 17:27 | disposition home or self-care (01) ==
LOC: ED 19:03 → 2N 19:03 → SUATTDRO 23:42 → 2N 04-01 00:28